=== PATIENT | male | born 1965 | race Caucasian/White ===

== ENCOUNTER → 2018-04-04 09:34 | Outpatient (CLI) | payer OTHER, SELFPAY ==
[2018-04-04 09:59] LABS: Red Blood Cells-Urine 0 SEEN /hpf (0-5); Squamous Epithelial Cells - UA 0 SEEN /hpf (0-5); White Blood Cells 0 SEEN /hpf (0-5)
[2018-04-04 10:53] LABS: Color, Urine Yellow (Yellow); Glucose, Dipstick Normal (Normal); Ketone-Dipstick Negative (Negative); Leukocyte Esterase-Dipstick Negative /ul (Negative); Nitrite-Dipstick Negative (Negative); Occult Blood-Urine Negative /ul (Negative); Protein-Dipstick Negative (Negative); Urine Bilirubin Dipstick Negative (Negative); Urine Clarity Clear (Clear); Urine Urobilinogen Normal (Normal)
[2018-04-04 11:09] LABS: Bacteria RARE /hpf (None Seen); Mucous, Urine 1+ /hpf (<or=2+)
[2018-04-04 11:37] LABS: Hemoglobin A1c 5.7 % (4.2-6.3)
[2018-04-04 11:42] LABS: AST(SGOT) 21 U/L (15-37); Alanine Aminotransfer ALT/SGPT 34 U/L (16-61); Albumin, Serum 3.7 g/dL (3.2-5.0); Alkaline Phosphatase 76 U/L (45-117); Anion Gap 6 (5-15); BUN 19 mg/dL (7-18); BUN/Creat Ratio 17.4 RATIO (10-20); Calcium,Total 8.2 mg/dL (8.5-10.1); Chloride 105 mmol/L (98-107); Cholesterol 201 mg/dL (200); Creatinine, Serum 1.09 mg/dL (0.70-1.30); EST Glomerular Filtration Rate 75 mL/min (>60); Est Glom Filt Rate - Afr Amer 90 mL/min (>60); Globulin 3.6 g/dL (2.2-4.2); Glucose 94 mg/dL (74-106); High Density Lipoprotein 51 mg/dL; Potassium 4.1 mmol/L (3.5-5.1); Protein, Total 7.3 g/dL (6.4-8.2); Sodium Level 141 mmol/L (136-145); Thyroid Stim Hormone (TSH) 1.79 uIU/mL (0.358-3.74); Triglycerides 78 mg/dL; Very Low Density Lipoprotein 16 mg/dL (5-40)
== END ==
PROVIDERS: Family Provider Internal Medicine; PCP Internal Medicine; Visit Provider Nurse Practitioner
DX: E78.2 Mixed hyperlipidemia (principal); R03.0 Elevated blood-pressure reading, without diagnosis of hypertension
CPT/HCPCS: 36415; 80053; 80061; 81001; 83036; 84443

== ENCOUNTER 2018-06-07 09:04 | Day surgery (SDC) | payer OTHER, SELFPAY ==
[2018-06-07 09:23] VITALS: BP 155/89; PULSE 86; RESP 16; TEMP 36.5; O2SAT 96; BMI 34.8
--- NOTE | 2018-06-07 10:36 | HP.PCM_ITS ---
Problem List (1) Screening for intestinal cancer Status: Acute History of Present Illness Date of Admission: 06/07/18 Chief Complaint: Screening for intestinal cancer The patient is a 53 year old M who is never had a previous colonoscopy. There is no family history of colon cancer. There is a family history of extensive diverticular disease in his father.. He denies bright red blood per rectum or melena. He is otherwise enjoyed good health. Denies chest pain or shortness of breath. Has not had any change of weight. No change of bowel habits. Past Medical History Allergies minocycline Allergy (Verified 06/07/18 09:21) Rash Home Medications: Ambulatory Orders Medication Instructions Recorded Aspirin E.C. [Ecotrin] 81 mg PO DAILY@0800 06/06/18 Carvedilol [Coreg] 6.25 mg PO BID 06/06/18 Glucosamine HCl 1,500 mg PO DAILY 06/06/18 Multivitamin [Daily Multiple 1 each PO DAILY 06/06/18 Vitamin] [place]-3 Fatty Acids [Fish Oil] 500 mg PO DAILY 06/06/18 Red Yeast Rice 600 mg PO DAILY 06/06/18 Smoking Status: Never smoker Review of Systems Constitutional: Denies: Anorexia Eyes: Denies: Blurred vision HEENT: Denies: Difficulty Hearing Cardiovascular: Denies: Chest Pain Respiratory: Denies: Cough Gastrointestinal: Denies: Abdominal Pain Psychiatric: Reports: Anxiety Endocrine: Denies: Change in Body Habitus VTE Information - Inpt Only VTE Present on Admission: No Patient Problems: Active and Suspected Problems Screening for intestinal cancer (Acute) - Physical Exam General: Alert, Oriented x3, Cooperative, No apparent distress HEENT: Atraumatic Oral: Moist Mucosa Neck: Supple Lungs: Clear to auscultation Cardiovascular: Regular rate Abdomen: Bowel Sounds Present, Soft, Non Tender Extremities: No edema, No Calf Tenderness Skin: No rashes Musculoskeletal: No Tenderness to Palpation of Joints or Extremities Neurological: Cranial nerves II-XII grossly intact Psych/Mental Status: Normal Affect Vital Signs Temp Pulse Resp BP Pulse Ox 97.7 F L 86 16 155/89 H 96 06/07/18 09:23 06/07/18 09:23 06/07/18 09:23 06/07/18 09:23 06/07/18 09:23 Oxygen Delivery Method Room Air Weight: 256 lb 9.889 oz Body Mass Index (BMI) 34.8 Assessment/Plan All Active Problems Screening for intestinal cancer (Acute) I plan to proceed with a screening colonoscopy with possible biopsy or polypectomy is indicated. He is aware of the technique, benefits, risks and alternatives. He has had an opportunity to ask and have questions answered. We will proceed as noted. Primary care physician Dr. Abena Nichols M.D., F.A.C.S.
[2018-06-07 11:35] VITALS: BP 116/81; BP 155/89; PULSE 87; RESP 17; TEMP 36.2; O2SAT 92
--- NOTE | 2018-06-07 11:35 | PCM.OPRPT ---
Problem List (1) Screening for intestinal cancer Status: Acute Report of Operation Date of Procedure: 06/07/18 Pre-Operative Diagnosis: Screening for intestinal cancer Post-Operative Diagnosis: Pancolonic diverticulosis. Internal hemorrhoids Surgery/Procedure Performed:: Colonoscopy Description of Surgical Findings:: Timeout informed consent was obtained. 53-year-old gent was taken to the endoscopy suite and placed into a left lateral decubitus position. He underwent monitored anesthesia care. Digital rectal exam performed. Grade 2 hemorrhoids. 2+ smooth prostate. No mass lesions. Flexible adult colonoscope inserted the rectum advanced quite readily through the sigmoid colon. Tension dionisio was activated was advanced to the transverse colon then by placing the patient supine and then some transabdominal pressure the scope was advanced to the cecum. The cecum ileocecal valve area was nicely achieved. Bowel prep was good. I carefully withdrew the scope from the cecum ascending colon transverse colon descending colon and sigmoid colon. Were needed I aspirated liquid stool. There was pancolonic diverticulosis with concentrated diverticulosis particularly of the sigmoid colon. I did not see any polyps or mass lesions. The scope was withdrawn to the rectum retroflex anorectal verge inspected grade 2 internal hemorrhoids noted but not bleeding. Excess fluid and air was aspirated free the procedure was completed with patient tolerating it well. Impression Pancolonic diverticulosis Grade 2 internal hemorrhoids This is the patient's first colonoscopy. Next screening colonoscopy recommended in 10 years. Scope was inserted at 1120. The cecum was reached at 1123. The procedure was completed at 1130. Cc: Dr. Abena Nichols M.D., F.A.C.S. Type of Anesthesia:: MAC Anesthesiologist: Estela Fox
[2018-06-07 11:40] VITALS: BP 119/75; BP 155/89; PULSE 93; RESP 16; O2SAT 95
[2018-06-07 11:45] VITALS: BP 118/88; BP 155/89; PULSE 90; RESP 16; O2SAT 95
[2018-06-07 11:50] VITALS: BP 134/93; BP 155/89; PULSE 85; RESP 16; TEMP 36.9; O2SAT 96
[2018-06-07 12:08] VITALS: BP 155/89
== END 2018-06-07 12:12 | disposition home or self-care (01) ==
LOC: EN 09:04 → AC 09:05
PROVIDERS: Family Provider Internal Medicine; PCP Internal Medicine; Visit Provider Surgery
PROC: 0DJD8ZZ Inspection of Lower Intestinal Tract, Via Natural or Artificial Opening Endoscopic (ICD-10-PCS; CPT 45378; principal; 2018-06-07 10:10)
DX: Z12.11 Encounter for screening for malignant neoplasm of colon (principal); K57.30 Diverticulosis of large intestine without perforation or abscess without bleeding; K64.8 Other hemorrhoids; I10 Essential (primary) hypertension; Z79.82 Long term (current) use of aspirin; Z79.899 Other long term (current) drug therapy
CPT/HCPCS: 45378; J7120

== ENCOUNTER → 2019-08-11 06:15 | Outpatient (CLI) | payer OTHER, SELFPAY ==
[2019-08-11 07:10] LABS: Hemoglobin 16.1 g/dL (13.0-16.5); Mean Corp Hgb Conc 32.2 g/dL (32-36); Mean Corpuscular Hgb 29.5 pg (27.0-32.0); Mean Corpuscular Volume 91.7 fL (80-94); Mean Platelet Vol. 9.6 fl (6.2-12.0); Platelet Count 270 K/mm3 (150-450); RBC Distribution Width CV 11.9 % (11.6-14.6); RBC Distribution Width SD 39.7 fl (35.1-43.9); Red Blood Count 5.45 M/mm3 (4.6-6.2); White Blood Count 10.1 K/mm3 (4.4-11.0)
[2019-08-11 07:50] LABS: AST(SGOT) 17 U/L (15-37); Alanine Aminotransfer ALT/SGPT 26 U/L (16-61); Albumin, Serum 3.6 g/dL (3.2-5.0); Alkaline Phosphatase 74 U/L (45-117); Anion Gap 3 (5-15); BUN 18 mg/dL (7-18); BUN/Creat Ratio 15.9 RATIO (10-20); Calcium,Total 8.1 mg/dL (8.5-10.1); Chloride 107 mmol/L (98-107); Cholesterol 207 mg/dL (200); Creatinine, Serum 1.13 mg/dL (0.70-1.30); EST Glomerular Filtration Rate 71 mL/min (>60); Est Glom Filt Rate - Afr Amer 86 mL/min (>60); Globulin 3.6 g/dL (2.2-4.2); Glucose 102 mg/dL (74-106); High Density Lipoprotein 51 mg/dL; Potassium 4.2 mmol/L (3.5-5.1); Protein, Total 7.2 g/dL (6.4-8.2); Sodium Level 140 mmol/L (136-145); Triglycerides 99 mg/dL; Very Low Density Lipoprotein 20 mg/dL (5-40)
== END ==
PROVIDERS: Family Provider Internal Medicine; PCP Internal Medicine; Referring Provider Internal Medicine; Visit Provider Internal Medicine
DX: Z00.00 Encounter for general adult medical examination without abnormal findings (principal); I10 Essential (primary) hypertension; Z79.899 Other long term (current) drug therapy
CPT/HCPCS: 36415; 80053; 80061; 85027

== ENCOUNTER → 2019-10-10 09:02 | Outpatient (CLI) | payer OTHER, SELFPAY ==
[2019-10-10 11:10] LABS: Vitamin D,25 Hydroxy 21.7 ng/mL (29.95-100.01)
== END ==
PROVIDERS: Family Provider Internal Medicine; PCP Internal Medicine; Referring Provider Internal Medicine; Visit Provider Internal Medicine
DX: E83.51 Hypocalcemia (principal)
CPT/HCPCS: 36415; 82306

== ENCOUNTER → 2020-11-16 14:55 | Outpatient (CLI) | payer OTHER, SELFPAY ==
--- NOTE | 2020-11-16 15:00 | RAD_ITS ---
STUDY: X-RAY CHEST REASON FOR EXAM: Male, 55 years old. Fall yesterday in driveway, left sided chest/rib pain TECHNIQUE: PA and lateral views of the chest. COMPARISON: None. FINDINGS: Hyperinflation. Minimal increased linear markings at the right lung base suggests a mild degree of the linear scarring. There is no demonstrated pleural abnormality. Normal size heart. Normal mediastinum and brittany. Normal visualized pulmonary arteries. Normal visualized aortic arch and descending thoracic aorta. There are degenerative changes of the visualized thoracic spine. Normal visualized ribs, clavicles, and shoulders. There is no demonstrated abnormality of the visualized soft tissue structures of the upper abdomen. RAD/Chest PA and Lateral IMPRESSION: Minimal increased markings at the right lung base suggestive of linear scarring. Electronically Signed: Kiel Posey MD at 15:21 EST , Service support ,
== END ==
PROVIDERS: PCP Internal Medicine; Referring Provider Clinical Nurse Specialist; Visit Provider Clinical Nurse Specialist
DX: R07.81 Pleurodynia (principal); W19.XXXA Unspecified fall, initial encounter
CPT/HCPCS: 71046

== ENCOUNTER 2021-12-14 10:35 | Outpatient (CLI) | payer OTHER, SELFPAY ==
[2021-12-14 10:53] LABS: Hematocrit 45.9 % (40-54); Hemoglobin 15.1 g/dL (13.0-16.5); Mean Corp Hgb Conc 32.9 g/dL (32-36); Mean Corpuscular Hgb 29.6 pg (27.0-32.0); Platelet Count 284 K/mm3 (150-450); RBC Distribution Width CV 11.8 % (11.6-14.6); RBC Distribution Width SD 38.8 fl (35.1-43.9); White Blood Count 12.9 K/mm3 (4.4-11.0)
[2021-12-14 11:20] LABS: Vitamin D,25 Hydroxy 20.5 ng/mL
[2021-12-14 11:26] LABS: ALB/GLOB Ratio 0.8 RATIO (0.9-2.4); AST(SGOT) 20 U/L (15-37); Alanine Aminotransfer ALT/SGPT 28 U/L (16-61); Albumin, Serum 3.4 g/dL (3.2-5.0); Alkaline Phosphatase 83 U/L (45-117); Anion Gap 4 (5-15); BUN 23 mg/dL (7-18); BUN/Creat Ratio 21.3 RATIO (10-20); Calcium,Total 8.7 mg/dL (8.5-10.1); Chloride 105 mmol/L (98-107); Cholesterol 163 mg/dL (200); Creatinine, Serum 1.08 mg/dL (0.70-1.30); EST Glomerular Filtration Rate 75 mL/min (>60); Est Glom Filt Rate - Afr Amer 90 mL/min (>60); Globulin 4.1 g/dL (2.2-4.2); Glucose 96 mg/dL (74-106); High Density Lipoprotein 46 mg/dL; PSA,Total - Annual Screen 3.49 ng/mL (0.00-4.00); Potassium 4.3 mmol/L (3.5-5.1); Protein, Total 7.5 g/dL (6.4-8.2); Sodium Level 139 mmol/L (136-145); Triglycerides 78 mg/dL; Very Low Density Lipoprotein 16 mg/dL (5-40)
== END 2021-12-14 23:59 | disposition home or self-care (01) ==
LOC: LAB 10:37
PROVIDERS: PCP Internal Medicine; Referring Provider Internal Medicine; Visit Provider Internal Medicine
DX: I10 Essential (primary) hypertension (principal); Z79.899 Other long term (current) drug therapy; E55.9 Vitamin D deficiency, unspecified; E78.00 Pure hypercholesterolemia, unspecified; Z12.5 Encounter for screening for malignant neoplasm of prostate
CPT/HCPCS: 36415; 80053; 80061; 82306; 84153; 85027; G0103

== ENCOUNTER → 2023-01-30 | Outpatient (CLI) | payer OTHER, SELFPAY ==
[2023-01-30 09:55] LABS: Hematocrit 50.2 % (40-54); Hemoglobin 16.2 g/dL (13.0-16.5); Mean Corp Hgb Conc 32.3 g/dL (32-36); Mean Corpuscular Hgb 29.3 pg (27.0-32.0); Mean Corpuscular Volume 90.8 fL (80-94); Mean Platelet Vol. 9.5 fl (6.2-12.0); Platelet Count 279 K/mm3 (150-450); RBC Distribution Width CV 11.8 % (11.6-14.6); RBC Distribution Width SD 39.4 fl (35.1-43.9); Red Blood Count 5.53 M/mm3 (4.6-6.2); White Blood Count 9.7 K/mm3 (4.4-11.0)
[2023-01-30 10:18] LABS: Vitamin D,25 Hydroxy 27.8 ng/mL
[2023-01-30 10:19] LABS: ALB/GLOB Ratio 1.1 RATIO (0.9-2.4); AST(SGOT) 25 U/L (15-37); Alanine Aminotransfer ALT/SGPT 33 U/L (16-61); Albumin, Serum 3.7 g/dL (3.2-5.0); Alkaline Phosphatase 80 U/L (45-117); Anion Gap 3 (5-15); BUN 26 mg/dL (7-18); BUN/Creat Ratio 23.6 RATIO (10-20); Calcium,Total 8.5 mg/dL (8.5-10.1); Chloride 108 mmol/L (98-107); Cholesterol 218 mg/dL (200); EST Glomerular Filtration Rate 73 mL/min (>60); Est Glom Filt Rate - Afr Amer 88 mL/min (>60); Globulin 3.4 g/dL (2.2-4.2); Glucose 109 mg/dL (74-106); High Density Lipoprotein 60 mg/dL; PSA,Total - Annual Screen 2.47 ng/mL (0.00-4.00); Potassium 4.1 mmol/L (3.5-5.1); Protein, Total 7.1 g/dL (6.4-8.2); Sodium Level 138 mmol/L (136-145); Triglycerides 83 mg/dL; Very Low Density Lipoprotein 17 mg/dL (5-40)
== END | disposition home or self-care (01) ==
LOC: LAB 09:19
PROVIDERS: PCP Internal Medicine; Referring Provider Internal Medicine; Visit Provider Internal Medicine
DX: Z00.00 Encounter for general adult medical examination without abnormal findings (principal); I10 Essential (primary) hypertension; E55.9 Vitamin D deficiency, unspecified; Z12.5 Encounter for screening for malignant neoplasm of prostate
CPT/HCPCS: 36415; 80053; 80061; 82306; 84153; 85027; G0103

== ENCOUNTER 2024-04-11 18:02 | Inpatient (IN) | payer OTHER, SELFPAY ==
[2024-04-11 18:02] VITALS: BP 145/76; PULSE 120; RESP 18; TEMP 36.1; O2SAT 96; BMI 33.0
--- NOTE | 2024-04-11 19:00 | CT_ITS ---
STUDY: CT ABDOMEN AND PELVIS WITH CONTRAST REASON FOR EXAM: Male, 58 years old. lower abdominal pain RADIATION DOSAGE (If Supplied By Facility): CTDIvol = ( 16.46 ) mGy, DLP = ( 1291.98 ) mGycm TECHNIQUE: Transaxial images were obtained from the dome of the diaphragm to the symphysis pubis without oral contrast. IV 100mL Isovue-370 was administered. Sagittal and coronal images were reconstructed. Individualized dose optimization techniques were used for this CT. COMPARISON: None. FINDINGS: Minor atelectasis within the dependent portion of the lower lobes. The visualized portions of the heart are within normal limits. Small hiatal hernia is noted. Normal liver. There are multiple gallstones noted without evidence for pericholecystic edema.. Normal spleen. Normal pancreas. Normal bilateral adrenal glands. Normal right kidney. Multiple small parapelvic cysts in left kidney. No evidence for obstruction or ureteral calculus. Normal visualized stomach. Normal small intestine. Diverticular changes of the colon. There is concentric thickening of the khoury at the junction of the distal descending and proximal sigmoid colon with stranding of fat consistent with acute diverticulitis. There is no peridiverticular abscess. No evidence for acute appendicitis. Normal abdominal aorta. Normal inferior vena cava. Normal retroperitoneum. Normal urinary bladder. Nonspecific enlargement of the prostate. Normal abdominal wall. Lumbar spine demonstrates degenerative changes CT/Abdomen/Pelvis W IV Cont ONLY IMPRESSION: Diffuse diverticular disease of the colon and acute diverticulitis at the junction of the distal descending and sigmoid colon without evidence for peridiverticular abscess. Other findings as above Electronically Signed: Zak Arango MD at 20:11 EDT Reading Location ID and State: [facility] / [place] Tel , Service support ,
[2024-04-11] MEDS: 0.9% Normal Saline (1000mL) 1,000 ML 999 ML IV (19:05)
[2024-04-11] MEDS: Morphine 4 MG/ML Syringe IV (19:05)
[2024-04-11] MEDS: Ondansetron 4 MG/2 ML Vial IV (19:05)
[2024-04-11 19:10] LABS: Absolute Lymphocyte Count 2.23 X10^3/uL (0.83-4.51); Absolute Neutrophil Count 19.1 X10^3/uL (2.0-7.7); Basophil# 0.05 X10^3/uL; Basophil% 0.2 % (0-1); Eosinophil# 0.03 X10^3/uL; Eosinophils% 0.1 % (0-5); Hematocrit 44.9 % (40-54); Hemoglobin 14.7 g/dL (13.0-16.5); Lymphocyte # 2.23 X10^3/ul (0.83-4.51); Lymphocyte % 9.5 % (19-41); Mean Corp Hgb Conc 32.7 g/dL (32-36); Mean Corpuscular Hgb 29.5 pg (27.0-32.0); Mean Corpuscular Volume 90.2 fL (80-94); Mean Platelet Vol. 8.9 fl (6.2-12.0); Monocyte# 1.95 X10^3/uL; Monocyte% 8.3 % (0-10); NRBC Flagged by Analyzer 0 % (0-5); Neutrophil # 19.07 X10^3/uL (2.7-7.7); Neutrophil % 81.4 % (47-70); POSITIVE DIFFERENTIAL YES; Platelet Count 409 K/mm3 (150-450); RBC Distribution Width CV 11.9 % (11.6-14.6); RBC Distribution Width SD 39.3 fl (35.1-43.9); Red Blood Count 4.98 M/mm3 (4.6-6.2); White Blood Count 23.4 K/mm3 (4.4-11.0)
[2024-04-11 19:17] LABS: Differential Indicated SCAN CRITERIA MET
--- NOTE | 2024-04-11 19:25 | EX.ED.DYSGE1 ---
HPI <AGNIESZKA Acharya - Last Filed: 04/11/24 20:37> History of Present Illness Chief Complaint: Abd Pain Narrative Narrative: Patient is a 58-year-old male with history of hypertension who presents to the emergency department for 8 days of worsening abdominal pain, fever and chills, elevated white blood cell count. Patient states that he developed lower abdominal pain, into his hips. Patient states has been having diarrhea. The pain is constant however now that it gets more sharp. Per the , the patient is unable to get comfortable. Patient had laboratory values completed in secondary to having an elevated white blood cell count of 22,000, the doctor referred him to the emergency department. PFSH <AGNIESZKA Acharya - Last Filed: 04/11/24 20:37> [facility] Medical History CKD (chronic kidney disease), stage II HLD (hyperlipidemia) Obesity Hypertension Home Medications ?Medication ?Instructions ?Recorded ?Last Taken ?Type aspirin 81 mg tablet,delayed 81 mg PO DAILY@0800 06/06/18 Unknown History release carvedilol 6.25 mg tablet (Coreg) 6.25 mg PO BID 06/06/18 06/07/18 History glucosamine HCl 1,500 mg tablet 1,500 mg PO DAILY 06/06/18 Unknown History multivitamin (Daily Multiple 1 ea PO DAILY 06/06/18 Unknown History tablet) omega 3-dha 60 mg-epa 90 mg-fish 500 mg PO DAILY 06/06/18 Unknown History oil 500 mg capsule, delayed release (Fish Oil) red yeast rice 600 mg capsule 600 mg PO DAILY 06/06/18 Unknown History Allergy/AdvReac Type Severity Reaction Status Date / Time minocycline Allergy Rash Verified 04/11/24 18:04 Family History Mother Diabetes Dementia Father Diabetes CAD (coronary artery disease) Heart disease Hypertension Myocardial infarction Surgical History History of dental surgery History of vasectomy Social History household members: spouse Smoking Status: Never smoker alcohol intake: never substance use type: does not use ROS <AGNIESZKA Acharya - Last Filed: 04/11/24 20:37> ROS ED ROS Narrative Constitutional: Negative for weight loss, weakness. Positive fever and chills Eyes: Negative for vision loss, vision change, double vision ENT: Negative for any sore throat, ear pain, congestion Cardiovascular: Negative for any chest pain, tightness, palpitations Respiratory: Negative for any cough, sputum production, hemoptysis, dyspnea, dyspnea on exertion, orthopnea Gastrointestinal: Negative for any nausea, vomiting, constipation, blood in stool, blood in vomit. Positive for abdominal pain, diarrhea : Negative for any urinary frequency, dysuria, retention, blood in urine Muscle skeletal: Negative for any neck pain, back pain Neurological: Negative for any headache, syncope, dizziness Skin: Negative for any rashes, itching, abrasions, lacerations Psychiatric: Negative for any depression, anxiety, stress, suicidal ideation, homicidal ideation Hematologic: Negative for any excessive bruising, easy bleeding EXAM <Adrian Fam NP-C - Last Filed: 04/11/24 20:37> Physical Exam Narrative Exam Narrative: Vital signs reviewed. Patient had temperature of 100.8, appeared to be in no distress. Patient did appear flushed HEET: Head normocephalic atraumatic, TMs clear bilaterally. Posterior pharynx is clear, dry mucous membranes. Nares clear bilaterally. Neck: Supple with no lymphadenopathy or tenderness. No signs of meningismus. Cardiac: Regular rate and rhythm no murmurs gallops or rubs, equal peripheral pulses bilaterally. Respiratory: Lungs clear to auscultation bilaterally. No chest tenderness. Abdomen: Soft, nontender, nondistended. No abdominal bruit or pulsatile masses. No hepatosplenomegaly. Active bowel sounds in all quadrants. Extremities: No peripheral edema, no signs of gross trauma or deformity. Active full range of motion of all extremities. Neuro: Cranial nerves II through XII intact, no focal neurological deficits. Skin: Clean dry and intact with no rash, purpura, petechiae, vesicles or pustules. Backs/flank: No CVA tenderness, no midline spinal tenderness, no deformity. Psych: Normal mood and affect. No SI, HI or acute psychosis. Const Vital Signs: 04/11/24 18:02 04/11/24 20:02 Temperature 96.9 F L 98 F Temperature Source Temporal Oral Pulse Rate 120 H 105 H Respiratory Rate 18 16 Blood Pressure 145/76 H 130/70 H Blood Pressure Mean 99 90 Pulse Ox 96 98 Oxygen Delivery Method Room Air Room Air <Dr. Prabhu Back MD - Last Filed: 04/11/24 22:17> Physical Exam Const Vital Signs: 04/11/24 18:02 04/11/24 20:02 Temperature 96.9 F L 98 F Temperature Source Temporal Oral Pulse Rate 120 H 105 H Respiratory Rate 18 16 Blood Pressure 145/76 H 130/70 H Blood Pressure Mean 99 90 Pulse Ox 96 98 Oxygen Delivery Method Room Air Room Air MDM <AGNIESZKA Acharya - Last Filed: 04/11/24 20:37> MDM Lab Data Labs: Laboratory Results - last 24 hr 04/11/24 04/11/24 04/11/24 18:38 19:15 19:45 WBC 23.4 H RBC 4.98 Hgb 14.7 Hct 44.9 MCV 90.2 MCH 29.5 MCHC 32.7 RDW Std Deviation 39.3 RDW Coeff of Hung 11.9 Plt Count 409 MPV 8.9 Immature Gran % (Auto) 0.500 Neut % (Auto) 81.4 H Lymph % (Auto) 9.5 L [place] % (Auto) 8.3 Eos % (Auto) 0.1 Baso % (Auto) 0.2 Absolute Neuts (auto) 19.1 H Absolute Lymphs (auto) 2.23 Nucleated RBC % 0 Differential Comment SEE COMMENT Diff Path Review May foll Toxic Granulation RARE Platelet Estimate SLT INC RBC Morphology N CHROM Anisocytosis RARE Macrocytosis RARE Ovalocytes RARE Sodium 135 L Potassium 4.0 Chloride 101 Carbon Dioxide 26.0 Anion Gap 8 BUN 21 H Creatinine 1.36 H Estim Creat Clear Calc 74.15 Est GFR (MDRD) Af Amer 69 Est GFR (MDRD) Non-Af 57 L BUN/Creatinine Ratio 15.4 Glucose 114 H Lactic Acid 0.9 Calcium 8.9 Total Bilirubin 0.90 AST 15 ALT 46 Alkaline Phosphatase 88 Total Protein 7.6 Albumin 3.0 L Globulin 4.6 H Albumin/Globulin Ratio 0.7 L Lipase 16 Urine Color Yellow Urine Clarity Clear Urine pH 6.0 Ur Specific [place] 1.010 Urine Protein 15 H Urine Glucose (UA) Normal Urine Ketones 50 H Urine Occult Blood 25 H Urine Nitrite Negative Urine Bilirubin Negative Urine Urobilinogen Normal Ur Leukocyte Esterase Negative Urine RBC 0-5 SEEN Urine WBC 0-5 SEEN Ur Squamous Epith Cells 0-5 SEEN Urine Bacteria 1+ Urine Mucus 1+ Radiography Diagnostic Testing: Clinical Impression(s) from Imaging Studies Abdomen/Pelvis CT 04/11/24 19:00 IMPRESSION: Diffuse diverticular disease of the colon and acute diverticulitis at the junction of the distal descending and sigmoid colon without evidence for peridiverticular abscess. Other findings as above Electronically Signed: Zak Arango MD at 20:11 EDT Reading Location ID and State: [facility] / [place] Tel , Service support , Treatment and Re-Evaluation :: Differential diagnosis includes however is not limited to: Acute appendicitis, colitis, diverticulitis, obstructing uropathy, infected kidney stone Patient appears to be in no obvious respiratory distress, vital signs show slight tachycardia, patient is febrile at 100.8 orally. Patient presents to the emerged department for elevated white blood cell count, abdominal pain for 8 days. Patient will receive a full abdominal workup including repeat CBC, CMP, lipase as well as lactic acid, CT scan of the abdomen pelvis with IV contrast will be obtained. Patient will receive IV fluids, morphine, Zofran. Patient will be reevaluated. All radiologic examinations were read, reviewed by the emergency department attending. From these reads, a plan of care will be put in place. Patient's CBC is a leukocytosis with white blood count of 23.4. Patient's chemistries showed a creatinine of 1.36 is slightly elevated. Lactic acid was 0.9 which is negative. Patient did not have enough relief with IV morphine, Dilaudid and Toradol will be ordered. CT scan of the abdomen pelvis shows diffuse diverticular disease of the colon acute diverticulitis at the junction of the distal descending and sigmoid colon without evidence of MAYLIN diverticular abscess. Other findings as above. Secondary to this finding, leukocytosis, the patient was placed on Zosyn, redosed with pain medicine. Patient be admitted to the hospital. <Dr. Prabhu Back MD - Last Filed: 04/11/24 22:17> [facility] Narrative Medical decision making narrative: I have personally performed a face to face assessment of the patient and have reviewed the ARON Note. I performed a substantive portion of the visit including all aspects of the following. My read findings include: History is remarkable for past history of mild diverticulosis based on colonoscopy formed by Dr. Fan Nichols 5 years ago. He presents with worsening abdominal pain persistent fever nausea. He denies history of diverticulitis. He denies urologic symptoms. He is on no antibiotics presently. Exam is blood pressure 145 or 76 pulse of 120. Patient's abdomen is firm with percussion tenderness left lower quadrant. There is guarding right lower quadrant and left lower quadrant. Patient has rebound tenderness left lower quadrant. There is no CVA tenderness noted. There is no saeid lymphadenopathy. Medical Decision Making differential diagnosis is perforated viscus versus diverticulosis versus diverticulitis versus atypical presentation for appendicitis. CT reveals acute diverticulitis. In light of the white count, fever peritoneal findings IV antibiotics were started and hospitalist was contacted. Dr. Wilkerson is excepted patient. Admit to [facility]. Other additions or changes: [None] Lab Data Attestation: I reviewed the patient's lab results. Lab results narrative: White count is 23.4 thousand with shift. Electrolyte panel is unremarkable. Renal function is normal. Lactate is normal. UA is remarkable for bacteriuria. This is asymptomatic bacteriuria or may be due to the fact that he has significant diverticulitis. Labs: Laboratory Results - last 24 hr 04/11/24 04/11/24 04/11/24 18:38 19:15 19:45 WBC 23.4 H RBC 4.98 Hgb 14.7 Hct 44.9 MCV 90.2 MCH 29.5 MCHC 32.7 RDW Std Deviation 39.3 RDW Coeff of Hung 11.9 Plt Count 409 MPV 8.9 Immature Gran % (Auto) 0.500 Neut % (Auto) 81.4 H Lymph % (Auto) 9.5 L [place] % (Auto) 8.3 Eos % (Auto) 0.1 Baso % (Auto) 0.2 Absolute Neuts (auto) 19.1 H Absolute Lymphs (auto) 2.23 Nucleated RBC % 0 Differential Comment SEE COMMENT Diff Path Review May foll Toxic Granulation RARE Platelet Estimate SLT INC RBC Morphology N CHROM Anisocytosis RARE Macrocytosis RARE Ovalocytes RARE Sodium 135 L Potassium 4.0 Chloride 101 Carbon Dioxide 26.0 Anion Gap 8 BUN 21 H Creatinine 1.36 H Estim Creat Clear Calc 74.15 Est GFR (MDRD) Af Amer 69 Est GFR (MDRD) Non-Af 57 L BUN/Creatinine Ratio 15.4 Glucose 114 H Lactic Acid 0.9 Calcium 8.9 Total Bilirubin 0.90 AST 15 ALT 46 Alkaline Phosphatase 88 Total Protein 7.6 Albumin 3.0 L Globulin 4.6 H Albumin/Globulin Ratio 0.7 L Lipase 16 Urine Color Yellow Urine Clarity Clear Urine pH 6.0 Ur Specific [place] 1.010 Urine Protein 15 H Urine Glucose (UA) Normal Urine Ketones 50 H Urine Occult Blood 25 H Urine Nitrite Negative Urine Bilirubin Negative Urine Urobilinogen Normal Ur Leukocyte Esterase Negative Urine RBC 0-5 SEEN Urine WBC 0-5 SEEN Ur Squamous Epith Cells 0-5 SEEN Urine Bacteria 1+ Urine Mucus 1+ Radiography Diagnostic Testing: Clinical Impression(s) from Imaging Studies Abdomen/Pelvis CT 04/11/24 19:00 IMPRESSION: Diffuse diverticular disease of the colon and acute diverticulitis at the junction of the distal descending and sigmoid colon without evidence for peridiverticular abscess. Other findings as above Electronically Signed: Zak Arango MD at 20:11 EDT , Discharge Plan Dx/Rx/DC Orders Clinical Impression: Diverticulitis large intestine, Localized peritonitis, Leukocytosis, Fever, Sinus tachycardia Disposition [facility] Dis[facility] Date/Time: 04/11/24 21:18
[2024-04-11 19:31] LABS: ALB/GLOB Ratio 0.7 RATIO (0.9-2.4); AST(SGOT) 15 U/L (15-37); Alanine Aminotransfer ALT/SGPT 46 U/L (16-61); Alkaline Phosphatase 88 U/L (45-117); Anion Gap 8 (5-15); BUN 21 mg/dL (7-18); BUN/Creat Ratio 15.4 RATIO (10-20); Calcium,Total 8.9 mg/dL (8.5-10.1); Chloride 101 mmol/L (98-107); Creatinine, Serum 1.36 mg/dL (0.70-1.30); EST Glomerular Filtration Rate 57 mL/min (>60); Est Glom Filt Rate - Afr Amer 69 mL/min (>60); Estimated Creatinine Clearance 74.15 ml/min; Globulin 4.6 g/dL (2.2-4.2); Glucose 114 mg/dL (74-106); Lipase 16 U/L (13-75); Protein, Total 7.6 g/dL (6.4-8.2); Sodium Level 135 mmol/L (136-145)
[2024-04-11 19:32] LABS: Anisocytosis RARE; Macrocytosis RARE; Ovalocyte RARE; Platelet Estimate SLT INC (ADEQ); Red Cell Morphology N CHROM NORMAL (NORM C&C); Toxic Granulation RARE
[2024-04-11 19:51] LABS: Lactic Acid 0.9 mmol/L (0.4-1.9)
[2024-04-11 19:57] LABS: Color, Urine Yellow (Yellow); Glucose, Dipstick Normal (Normal); Ketone-Dipstick 50 mg/dl (Negative); Leukocyte Esterase-Dipstick Negative /ul (Negative); Nitrite-Dipstick Negative (Negative); Occult Blood-Urine 25 /ul (Negative); Protein-Dipstick 15 mg/dl (Negative); Urine Bilirubin Dipstick Negative (Negative); Urine Clarity Clear (Clear); Urine Urobilinogen Normal (Normal)
[2024-04-11 20:02] VITALS: BP 130/70; PULSE 105; RESP 16; TEMP 36.6; O2SAT 98
[2024-04-11 20:12] LABS: Bacteria 1+ /hpf (None Seen); Mucous, Urine 1+ /hpf (<or=2+); Red Blood Cells-Urine 0-5 SEEN /hpf (0-5); White Blood Cells 0-5 SEEN /hpf (0-5)
[2024-04-11 20:13] LABS: Squamous Epithelial Cells - UA 0-5 SEEN /hpf (0-5)
--- NOTE | 2024-04-11 20:28 | PCM.HP.STD ---
HPI - General General Date of Admission: 04/11/24 Date of Service: 04/11/24 Chief Complaint: Abdominal pain, diarrhea. HPI Narrative The patient is a 58 y/o M w/ PMHx: HTN, HLD, Obesity who presents to the [facility] ED on 04/11/24 with history of 8 days of progressively worsening abdominal discomfort as well as fever and chills with lower bilateral quadrant abdominal discomfort with diarrhea which has become constant with intermittent sharp stabbing with outpatient evaluation and noted elevated WBC of 22,000 with referral to ED for further evaluation given concerns. He notes that he has been having at least 2-3 liquidy stools a day and has had lack of appetite. He has not had any nausea or emesis. He does state that he has been taking Pepto-Bismol for stomach discomfort which has made his stool dark in appearance. He notes that he did see his doctor on day of presentation and had a's CAT scan ordered as well as labs but unfortunately the CAT scan was going to be delayed until the following Sunday and when his labs returned abnormal he was referred to the ED to be evaluated more quickly. He currently rates his discomfort 7 out of 10 in severity but when he attempts to move it becomes 10 out of 10. He has a constant dull aching pain that he describes as a constant shock which worsens when he is active or attempts to be. Workup in the ED included T96.9 Temporally, heart rate 120, BP 145/76, respiratory rate 18, 96% on room air, CBC with WC 23.4, human 14.7, platelet 409 with left shift, CMP with sodium 135, BUN/creatinine 21/1.36, GFR 57, glucose 114, hepatic profile not marked appearing, lipase 16, lactic acid 0.9, urinalysis not marked appearing, CT abdomen and pelvis with diffuse diverticular disease of the colon and acute diverticulitis at the junction of the distal descending and sigmoid colon without any evidence for peridiverticular abscess. In the ED patient ministered 1 L normal saline, morphine 4 mg IV x 1, Toradol 50 mg IV x 1, Dilaudid 1 mg IV x 1, Zosyn 3.75 g IV x 1. [facility] Medical History (Updated 04/11/24 @ 20:[address] Carol Wilkerson MD) CKD (chronic kidney disease), stage II HLD (hyperlipidemia) Obesity Hypertension Home Medications ?Medication ?Instructions ?Recorded ?Last Taken ?Type aspirin 81 mg tablet,delayed 81 mg PO DAILY@0800 06/06/18 Unknown History release carvedilol 6.25 mg tablet (Coreg) 6.25 mg PO BID 06/06/18 06/07/18 History glucosamine HCl 1,500 mg tablet 1,500 mg PO DAILY 06/06/18 Unknown History multivitamin (Daily Multiple 1 ea PO DAILY 06/06/18 Unknown History tablet) omega 3-dha 60 mg-epa 90 mg-fish 500 mg PO DAILY 06/06/18 Unknown History oil 500 mg capsule, delayed release (Fish Oil) red yeast rice 600 mg capsule 600 mg PO DAILY 06/06/18 Unknown History Allergy/AdvReac Type Severity Reaction Status Date / Time minocycline Allergy Rash Verified 04/11/24 18:04 Family History (Updated 04/11/24 @ 20:[address] Carol Wilkerson MD) Mother Diabetes Dementia Father Diabetes CAD (coronary artery disease) Heart disease Hypertension Myocardial infarction Surgical History (Updated 04/11/24 @ 20:[address] Carol Wilkerson MD) History of dental surgery History of vasectomy Social History (Updated 04/11/24 @ 20:[address] Carlo Wilkerson MD) household members: spouse Smoking Status: Never smoker alcohol intake: never substance use type: does not use ROS ROS Narrative Admission Review of Systems: CONSTITUTIONAL: No weight loss, + fever, chills, weakness or fatigue. HEENT: Eyes: No visual loss, blurred vision, double vision or yellow sclerae. Ears, Nose, Throat: No hearing loss, sneezing, congestion, runny nose or sore throat. SKIN: No rash or itching, lesions, wounds. CARDIOVASCULAR: No chest pain, chest pressure or chest discomfort, palpitations, edema, orthopnea, syncopal events. RESPIRATORY: No shortness of breath, cough or sputum, wheezing, hemoptysis. GASTROINTESTINAL: + Anorexia, abdominal pain, diarrhea, darker stools but on Pepto-Bismol. No melena, BRBPR. GENITOURINARY: No dysuria, frequency, urgency or retention. NEUROLOGICAL: No headache, dizziness, syncope, paralysis, ataxia, numbness or tingling in the extremities, focal weakness, change in bowel or bladder control, seizure. MUSCULOSKELETAL: + muscle, back pain, joint pain or stiffness. HEMATOLOGIC: No anemia, bleeding or bruising. LYMPHATICS: No enlarged nodes. No history of splenectomy. PSYCHIATRIC: No history of depression or anxiety. ENDOCRINOLOGIC: No reports of sweating, cold or heat intolerance. No polyuria or polydipsia. ALLERGIES: No history of asthma, hives, eczema or rhinitis. Vital Signs Vital Signs Vital Signs: 04/11/24 18:02 Temperature 96.9 F L Temperature Source Temporal Pulse Rate 120 H Respiratory Rate 18 Blood Pressure 145/76 H Blood Pressure Mean 99 Pulse Ox 96 Oxygen Delivery Method Room Air Weight Weight: 243 lb 9.773 oz Body Mass Index (BMI) 33.0 Physical Exam Narrative Physical Examination: General: Awake, alert, oriented x 3 and cooperative, seated upright in the ED bed, fatigued, notes pain currently 7 out of 10 in severity. Skin: Normal color, normal turgor, no icterus, no cyanosis. HEENT: AT/NC, EOMI, PERRLA, dry MM, no carotid bruits or JVD noted. Lungs: CTA bilaterally, moderate effort, mild decrease BL bases, no rales, ronchi or wheezing. Heart: Mildly tachycardic with regular rhythm; no gallop, rub audible. Abdomen: Soft, obese, discomfort to palpation bilateral lower quadrant, left greater than right, some mild guarding but no rebound, nondistended, mildly hyperactive BS, no appreciated HSM. Extremities: No cyanosis, clubbing, or edema. Neurological: Patient awake, alert, oriented as noted, cognitive function intact; pupils equally reactive to light and accommodation, cranial nerves grossly normal, moving all 4 extremities, no focal deficits, strength mildly to moderately global decreased secondary to acute complaints. Psychiatric: Affect appears mildly uncomfortable, fatigued,no acute evidence of depressive or anxiety feelings. Results Lab / Micro Data 04/11/24 18:38 04/11/24 18:38 Labs: Laboratory Results - last 24 hr 04/11/24 18:38: WBC 23.4 H, RBC 4.98, Hgb 14.7, Hct 44.9, MCV 90.2, MCH 29.5, MCHC 32.7, RDW Std Deviation 39.3, RDW Coeff of Hung 11.9, Plt Count 409, MPV 8.9, Immature Gran % (Auto) 0.500, Neut % (Auto) 81.4 H, Lymph % (Auto) 9.5 L, Barber % (Auto) 8.3, Eos % (Auto) 0.1, Baso % (Auto) 0.2, Absolute Neuts (auto) 19.1 H, Absolute Lymphs (auto) 2.23, Nucleated RBC % 0, Differential Comment SEE COMMENT, Diff Path Review May foll, Toxic Granulation RARE, Platelet Estimate SLT INC, RBC Morphology N CHROM, Anisocytosis RARE, Macrocytosis RARE, Ovalocytes RARE, Sodium 135 L, Potassium 4.0, Chloride 101, Carbon Dioxide 26.0, Anion Gap 8, BUN 21 H, Creatinine 1.36 H, Estim Creat Clear Calc 74.15, Est GFR (MDRD) Af Amer 69, Est GFR (MDRD) Non-Af 57 L, BUN/Creatinine Ratio 15.4, Glucose 114 H, Calcium 8.9, Total Bilirubin 0.90, AST 15, ALT 46, Alkaline Phosphatase 88, Total Protein 7.6, Albumin 3.0 L, Globulin 4.6 H, Albumin/Globulin Ratio 0.7 L, Lipase 16 04/11/24 19:15: Lactic Acid 0.9 04/11/24 19:45: Urine Color Yellow, Urine Clarity Clear, Urine pH 6.0, Ur Specific [place] 1.010, Urine Protein 15 H, Urine Glucose (UA) Normal, Urine Ketones 50 H, Urine Occult Blood 25 H, Urine Nitrite Negative, Urine Bilirubin Negative, Urine Urobilinogen Normal, Ur Leukocyte Esterase Negative, Urine RBC 0-5 SEEN, Urine WBC 0-5 SEEN, Ur Squamous Epith Cells 0-5 SEEN, Urine Bacteria 1+, Urine Mucus 1+ Imaging Radiology Impression Abdomen/Pelvis CT 04/11/24 19:00 IMPRESSION: Diffuse diverticular disease of the colon and acute diverticulitis at the junction of the distal descending and sigmoid colon without evidence for peridiverticular abscess. Other findings as above Electronically Signed: Zak Arango MD at 20:11 EDT Reading Location ID and State: [facility] / [place] Tel , Service support , Assessment & Plan Assessment/Plan (1) Acute diverticulitis: PLAN: Plan The patient is a 58 y/o M w/ PMHx: HTN, HLD, Obesity, CKD stage II who presents to the [facility] ED on 04/11/24 with history of 8 days of progressively worsening abdominal discomfort as well as fever and chills with lower bilateral quadrant abdominal discomfort with diarrhea which has become constant with intermittent sharp stabbing with outpatient evaluation and noted elevated WBC of 22,000 with referral to ED for further evaluation given concerns. #1. Acute diverticulitis at the junction of the distal descending and sigmoid colon without any evidence of peridiverticular abscess with localized peritonitis with significant tachycardia, intractable pain, diarrhea and leukocytosis of 23.4 with significant left shift: Will admit to MS, maintain on aggressive hydration, monitor I&Os, maintain NPO status w/ bowel rest until pain improved with transition to clears and advance diet as tolerated as improving, IV PPI, anti-emetics, pain regimen PRN. #2. Acute renal insufficiency on CKD stage II based on GFR trending secondary to #1: Admission BUN/current 21/1.36, GFR 57, baseline creatinine primarily 1.0-1.1, will continue to hydrate and repeat BMP in a.m. #3. Hypertension: Continue home regimen including Coreg, PRN hydralazine. #4. Hyperlipidemia: We will temporarily hold patient red yeast rice home regimen, resume outpatient. #5. Obesity: Weight loss and lifestyle changes encouraged. #6. DVT prophylaxis: Given type of presentation low risk, encourage ambulation. #7. 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 She is in the healthcare industry. Discussed CODE status at length including difference between FULL code, DNR-CCA and DNR-CC status. Following discussions about the differences in these status, requested full code. Charges/Coding Visit Charges Inpatient E&M: 43660 Init Hosp L3
[2024-04-11] MEDS: Ketorolac 15 MG/ML Vial IV (20:51)
[2024-04-11] MEDS: Piperacil/Tazobactam 3.375 GM in 0.9% Normal Saline (50mL MB+) 50 ML IV (20:52)
[2024-04-11] MEDS: HYDROmorphone 1 MG/ML Syringe IV (20:52)
[2024-04-11 21:11] VITALS: BP 136/78; PULSE 111; RESP 16; TEMP 36.7; O2SAT 98
[2024-04-11 21:46] VITALS: BP 119/69; PULSE 105; RESP 16; TEMP 36.8; O2SAT 98
[2024-04-11 21:48] VITALS: BMI 33.0
[2024-04-11] MEDS: Pantoprazole Sodium 40 MG in 0.9% Normal Saline (100mL MB+) 100 ML 330 MG IV (22:06)
[2024-04-11] MEDS: 0.9% Normal Saline (1000mL) 1,000 ML 125 ML IV (22:06)
[2024-04-11] MEDS: Carvedilol 6.25 MG Tablet PO (22:06)
[2024-04-12 05:26] VITALS: BMI 32.9
[2024-04-12] MEDS: 0.9% Normal Saline (1000mL) 1,000 ML 125 ML IV (06:19)
[2024-04-12] MEDS: Piperacil/Tazobactam 3.375 GM in 0.9% Normal Saline (50mL MB+) 50 ML IV ×3 (06:19→20:18)
[2024-04-12 06:21] VITALS: BP 132/71; PULSE 91; RESP 16; TEMP 36.8; O2SAT 95
[2024-04-12 08:08] VITALS: O2SAT 97
[2024-04-12 08:21] LABS: Absolute Lymphocyte Count 1.81 X10^3/uL (0.83-4.51); Absolute Neutrophil Count 16.1 X10^3/uL (2.0-7.7); Basophil# 0.03 X10^3/uL; Basophil% 0.2 % (0-1); Eosinophil# 0.05 X10^3/uL; Eosinophils% 0.3 % (0-5); Hematocrit 41.1 % (40-54); Hemoglobin 13.1 g/dL (13.0-16.5); Lymphocyte # 1.81 X10^3/ul (0.83-4.51); Lymphocyte % 9.1 % (19-41); Mean Corp Hgb Conc 31.9 g/dL (32-36); Mean Corpuscular Hgb 29.2 pg (27.0-32.0); Mean Corpuscular Volume 91.5 fL (80-94); Mean Platelet Vol. 9.1 fl (6.2-12.0); Monocyte# 1.74 X10^3/uL; Monocyte% 8.7 % (0-10); NRBC Flagged by Analyzer 0 % (0-5); Neutrophil # 16.13 X10^3/uL (2.7-7.7); POSITIVE DIFFERENTIAL YES; Platelet Count 340 K/mm3 (150-450); RBC Distribution Width SD 40.2 fl (35.1-43.9); Red Blood Count 4.49 M/mm3 (4.6-6.2); White Blood Count 19.9 K/mm3 (4.4-11.0)
[2024-04-12 08:28] LABS: Differential Indicated SCAN CRITERIA MET
[2024-04-12] MEDS: Aspirin E.C. 81 MG Tablet PO (08:38)
[2024-04-12] MEDS: Carvedilol 6.25 MG Tablet PO ×2 (08:38→20:18)
[2024-04-12 08:44] VITALS: BP 137/78; PULSE 104; RESP 16; TEMP 37.6; O2SAT 97
[2024-04-12 08:46] LABS: ALB/GLOB Ratio 0.6 RATIO (0.9-2.4); AST(SGOT) 11 U/L (15-37); Alanine Aminotransfer ALT/SGPT 35 U/L (16-61); Albumin, Serum 2.5 g/dL (3.2-5.0); Alkaline Phosphatase 75 U/L (45-117); Anion Gap 6 (5-15); BUN 23 mg/dL (7-18); BUN/Creat Ratio 20.7 RATIO (10-20); Calcium,Total 8.4 mg/dL (8.5-10.1); Chloride 106 mmol/L (98-107); Creatinine, Serum 1.11 mg/dL (0.70-1.30); EST Glomerular Filtration Rate 72 mL/min (>60); Est Glom Filt Rate - Afr Amer 87 mL/min (>60); Estimated Creatinine Clearance 90.77 ml/min; Globulin 3.9 g/dL (2.2-4.2); Glucose 98 mg/dL (74-106); Potassium 3.7 mmol/L (3.5-5.1); Protein, Total 6.4 g/dL (6.4-8.2); Sodium Level 136 mmol/L (136-145)
--- NOTE | 2024-04-12 08:52 | PN.HOSP_ITS ---
Reason for Visit Reason for Visit: Diagnoses Diverticulitis of intestine, part unspecified, without perforation or abscess without bleeding (04/11/24) Subjective Subjective Pain improving, not presently having vomiting, interested in advancing diet Objective Data Objective Data Vital Signs: Vital Signs Temp Pulse Resp BP Pulse Ox O2 Del Method 99.7 F H 104 H 16 137/78 H 97 Room Air 04/12/24 08:44 04/12/24 08:44 04/12/24 08:44 04/12/24 08:44 04/12/24 08:44 04/12/24 08:44 Oxygen Delivery Method Room Air Weight: 110.3 kg Body Mass Index (BMI) 32.9 Intake & Output: Intake and Output for Last 24 Hours 04/10/24 04/11/24 04/12/24 23:59 23:59 23:59 Intake Total 1160 / 1160 1000 / 1000 Balance 1160 / 1160 1000 / 1000 Lab / Micro Data 04/12/24 07:24 04/12/24 07:24 Labs: Laboratory Results - last 24 hr 04/11/24 18:38: WBC 23.4 H, RBC 4.98, Hgb 14.7, Hct 44.9, MCV 90.2, MCH 29.5, MCHC 32.7, RDW Std Deviation 39.3, RDW Coeff of Hung 11.9, Plt Count 409, MPV 8.9, Immature Gran % (Auto) 0.500, Neut % (Auto) 81.4 H, Lymph % (Auto) 9.5 L, [place] % (Auto) 8.3, Eos % (Auto) 0.1, Baso % (Auto) 0.2, Absolute Neuts (auto) 19.1 H, Absolute Lymphs (auto) 2.23, Nucleated RBC % 0, Differential Comment SEE COMMENT, Diff Path Review May foll, Toxic Granulation RARE, Platelet Estimate SLT INC, RBC Morphology N CHROM, Anisocytosis RARE, Macrocytosis RARE, Ovalocytes RARE, Sodium 135 L, Potassium 4.0, Chloride 101, Carbon Dioxide 26.0, Anion Gap 8, BUN 21 H, Creatinine 1.36 H, Estim Creat Clear Calc 74.15, Est GFR (MDRD) Af Amer 69, Est GFR (MDRD) Non-Af 57 L, BUN/Creatinine Ratio 15.4, G lucose 114 H, Calcium 8.9, Total Bilirubin 0.90, AST 15, ALT 46, Alkaline Phosphatase 88, Total Protein 7.6, Albumin 3.0 L, Globulin 4.6 H, A lbumin/Globulin Ratio 0.7 L, Lipase 16 04/11/24 19:15: Lactic Acid 0.9 04/11/24 19:45: Urine Color Yellow, Urine Clarity Clear, Urine pH 6.0, Ur Specific [place] 1.010, Urine Protein 15 H, Urine Glucose (UA) Normal, Urine Ketones 50 H, Urine Occult Blood 25 H, Urine Nitrite Negative, Urine Bilirubin Negative, Urine Urobilinogen Normal, Ur Leukocyte Esterase Negative, Urine RBC 0-5 SEEN, Urine WBC 0-5 SEEN, Ur Squamous Epith Cells 0-5 SEEN, Urine Bacteria 1+, Urine Mucus 1+ 04/12/24 07:24: WBC 19.9 H, RBC 4.49 L, Hgb 13.1, Hct 41.1, MCV 91.5, MCH 29.2, MCHC 31.9 L, RDW Std Deviation 40.2, RDW Coeff of Hung 12.0, Plt Count 340, MPV 9.1, Immature Gran % (Auto) 0.700, Neut % (Auto) 81.0 H, Lymph % (Auto) 9.1 L, [place] % (Auto) 8.7, Eos % (Auto) 0.3, Baso % (Auto) 0.2, Absolute Neuts (auto) 16.1 H, Absolute Lymphs (auto) 1.81, Nucleated RBC % 0, Sodium 136, Potassium 3.7, Chloride 106, Carbon Dioxide 24.0, Anion Gap 6, BUN 23 H, Creatinine 1.11, Estim Creat Clear Calc 90.77, Est GFR (MDRD) Af Amer 87, Est GFR (MDRD) Non-Af 72, BUN/Creatinine Ratio 20.7 H, Glucose 98, Calcium 8.4 L, Total Bilirubin 0.70, AST 11 L, ALT 35, Alkaline Phosphatase 75, Total Protein 6.4, Albumin 2.5 L, Globulin 3.9, Albumin/Globulin Ratio 0.6 L Radiography Diagnostic Testing: Radiology Impression Abdomen/Pelvis CT 04/11/24 19:00 IMPRESSION: Diffuse diverticular disease of the colon and acute diverticulitis at the junction of the distal descending and sigmoid colon without evidence for peridiverticular abscess. Other findings as above Electronically Signed: Zak Arango MD at 20:11 EDT Reading Location ID and State: [facility] / [place] Tel , Service support , Physical Exam Narrative General: Alert, oriented, no apparent distress HEENT: Atraumatic, normocephalic Eyes: Anicteric, normal conjunctiva, extraocular movements grossly intact Neck: Supple Respiratory: Clear to auscultation bilaterally, normal respiratory effort Cardiovascular: Regular rate and rhythm GI: Slightly firm, no rebound, guarding, rigidity Extremities: No edema Musculoskeletal: Moving all extremities Neuro: No overt focal neurological deficits Skin: No rashes appreciated Psych: Cooperative Assessment & Plan Assessment/Plan (1) Acute diverticulitis: PLAN: Plan # Acute diverticulitis -CT scan demonstrated acute diverticulitis at junction of the distal descending and sigmoid colon without evidence of peridiverticular abscess -Had elevated white blood cell count on arrival, slightly down trended with intervention -Was n.p.o., no clear liquid diet, advance as tolerated -Antibiotics and IV fluids -Supportive care #Hypertension -Continue Coreg, as needed hydralazine # Obesity -Weight loss and lifestyle changes encouraged #DVT ppx: Lovenox subcu Ana Fernandes MD Time spent in the patient's overall evaluation,decision-making process, review of diagnostic data, adjustment of management, discussion with other providers, nursing nursing and ancillary staff involved in patient's care documentation, 25 minutes Charges/Coding Visit Charges Inpatient E&M: 55176 [facility] Hosp L1
--- NOTE | 2024-04-12 08:56 | CASEMGMT ---
YVETTE GUAMAN Assessment Face to Face with patient for initial transition planning/care coordination assessment. YVETTE GUAMAN introduced self and role at [facility], pt voices understanding. Pt is A&Ox4 and is resting comfortably in bed and is calm. Care providers, pharmacy, and demographics verified. Admitting dx: Acute Diverticulitis PCP: Brooke Specialists: Denies Preferred Pharmacy: [facility] Insurance: [facility] (Pt works at [facility]) Prescription Benefit: Yes LNOK: Ana Spaulding (W) Living Arrangements: Pt lives with his in a two story home with a BM and two steps to enter ADLs/IADLs: Ind Transportation: Self, DME: [employer]. Pt denies all other DME uses or needs HHC/SNF: Denies history or needs Pt?s goal: Home no needs Plan: Home no needs. 6-Click is 24. Pt states that his is an RN and can help care for him at home. Pt states that he feels safe with this plan and denies the need for HHC or OP Tx. Pt denies any further questions or concerns at this time. Kirby Osborn RN, CM
[2024-04-12] MEDS: Pantoprazole Sodium 40 MG in 0.9% Normal Saline (100mL MB+) 100 ML 330 MG IV ×2 (10:44→20:18)
--- NOTE | 2024-04-12 11:19 | CASEMGMT ---
Social Work SW spoke w/pt about LW/POA, he confirmed is POA. SW asked pt to have bring in the documents as able, pt states understanding, will do so. CHELO Huston
[2024-04-12] MEDS: Enoxaparin 40 MG/0.4 ML Syringe SC (13:29)
[2024-04-12 13:34] VITALS: BP 144/86; PULSE 97; RESP 18; TEMP 37.3; O2SAT 100
[2024-04-12 17:21] VITALS: BP 137/83; PULSE 94; RESP 16; TEMP 37.1; O2SAT 96
[2024-04-12 20:16] VITALS: BP 149/85; PULSE 95; RESP 16; TEMP 37.3; O2SAT 98
[2024-04-13] MEDS: Piperacil/Tazobactam 3.375 GM in 0.9% Normal Saline (50mL MB+) 50 ML IV (05:49)
[2024-04-13 05:50] VITALS: BP 145/86; PULSE 90; RESP 16; TEMP 37.1; O2SAT 96
[2024-04-13 05:51] VITALS: BMI 32.8
[2024-04-13 06:34] LABS: Absolute Lymphocyte Count 2.44 X10^3/uL (0.83-4.51); Absolute Neutrophil Count 11.9 X10^3/uL (2.0-7.7); Basophil# 0.04 X10^3/uL; Basophil% 0.2 % (0-1); Eosinophils% 0.6 % (0-5); Hematocrit 40.1 % (40-54); Hemoglobin 12.9 g/dL (13.0-16.5); Lymphocyte # 2.44 X10^3/ul (0.83-4.51); Lymphocyte % 15.1 % (19-41); Mean Corp Hgb Conc 32.2 g/dL (32-36); Mean Corpuscular Hgb 29.2 pg (27.0-32.0); Mean Corpuscular Volume 90.7 fL (80-94); Monocyte# 1.57 X10^3/uL; Monocyte% 9.7 % (0-10); NRBC Flagged by Analyzer 0 % (0-5); Neutrophil # 11.89 X10^3/uL (2.7-7.7); Neutrophil % 73.8 % (47-70); POSITIVE DIFFERENTIAL YES; Platelet Count 330 K/mm3 (150-450); RBC Distribution Width CV 11.8 % (11.6-14.6); RBC Distribution Width SD 39.4 fl (35.1-43.9); Red Blood Count 4.42 M/mm3 (4.6-6.2); White Blood Count 16.1 K/mm3 (4.4-11.0)
[2024-04-13 06:40] LABS: Differential Indicated SCAN CRITERIA MET
[2024-04-13 06:58] VITALS: O2SAT 95
[2024-04-13 07:02] LABS: ALB/GLOB Ratio 0.6 RATIO (0.9-2.4); AST(SGOT) 24 U/L (15-37); Alanine Aminotransfer ALT/SGPT 37 U/L (16-61); Albumin, Serum 2.3 g/dL (3.2-5.0); Alkaline Phosphatase 65 U/L (45-117); Anion Gap 7 (5-15); BUN 12 mg/dL (7-18); BUN/Creat Ratio 12.4 RATIO (10-20); Calcium,Total 8.3 mg/dL (8.5-10.1); Chloride 107 mmol/L (98-107); Creatinine, Serum 0.96 mg/dL (0.70-1.30); EST Glomerular Filtration Rate 84 mL/min (>60); Est Glom Filt Rate - Afr Amer 102 mL/min (>60); Estimated Creatinine Clearance 104.86 ml/min; Glucose 108 mg/dL (74-106); Potassium 3.6 mmol/L (3.5-5.1); Protein, Total 6.3 g/dL (6.4-8.2); Sodium Level 139 mmol/L (136-145)
[2024-04-13] MEDS: Aspirin E.C. 81 MG Tablet PO (08:57)
[2024-04-13 08:59] VITALS: BP 157/97; PULSE 94; RESP 18; TEMP 36.6; O2SAT 96
[2024-04-13] MEDS: Carvedilol 6.25 MG Tablet PO (09:01)
[2024-04-13] MEDS: Pantoprazole Sodium 40 MG in 0.9% Normal Saline (100mL MB+) 100 ML 330 MG IV (10:18)
--- NOTE | 2024-04-13 11:50 | DCINST_ITS ---
Discharge Instructions Diet Discharge Diet: Low fat / Low cholesterol Activity Discharge Activity: Return to Normal Activity Dressing / Incision Call your doctor if you observe: Fever of 101 or Higher, Shortness of breath, Dizziness, Fainting spells, Swelling in the ankles, Chest pain and Increased palpitations (irregular heartbeat) Follow Up Care Test Results: Test results from this visit will be discussed in further detail at your follow- up appointment, if applicable. Discharge Plan Admission Admit Date/Time: 04/11/24 20:31 Primary Reason for Your Visit: ACUTE DIVERTICULITIS Attending Provider: Franco Ding Primary Care Provider: Abena Cox Consulting Providers: Carol Wilkerson; Ana Fernandes Discharge Orders/Prescriptions Prescriptions: New amoxicillin-pot clavulanate 875-125 mg tablet 1 tab PO BID 7 Days Qty: 14 0RF Continued multivitamin [Daily Multiple] 1 EACH tablet 1 ea PO DAILY carvedilol [Coreg] 6.25 MG tablet 6.25 mg PO BID aspirin 81 MG tablet 81 mg PO DAILY@0800 red yeast rice 600 MG capsule 600 mg PO DAILY Fish Oil 500 MG capsule,delayed release(DR/EC) 500 mg PO DAILY glucosamine HCl 1,500 MG tablet 1,500 mg PO DAILY Referrals / Follow Up: Abena Cox MD [Primary Care Provider] - Within 1 Week Disposition Disposition (needs filled in before D/C Order can be placed): Home, Self Care
[2024-04-13 12:20] VITALS: BP 148/88; PULSE 90; RESP 18; TEMP 37.1; O2SAT 95
--- NOTE | 2024-04-13 13:48 | PCM.DC.SUM ---
Providers Date of Admission: 04/11/24 Primary Care Physician: Dr. Abnea Cox MD Reason For Visit: ACUTE DIVERTICULITIS Diagnosis Discharge Diagnosis (1) Acute diverticulitis: Status: Acute Code(s): K57.92 - Diverticulitis of intestine, part unspecified, without perforation or abscess without bleeding Medications at Discharge Home Medications aspirin 81 mg tablet,delayed release 81 mg PO DAILY@0800 blood thinner 06/06/18 carvedilol 6.25 mg tablet (Coreg) 6.25 mg PO BID heart 06/06/18 glucosamine HCl 1,500 mg tablet 1,500 mg PO DAILY supplement 06/06/18 multivitamin (Daily Multiple tablet) 1 ea PO DAILY supplement 06/06/18 omega 3-dha 60 mg-epa 90 mg-fish oil 500 mg capsule, delayed release (Fish Oil) 500 mg PO DAILY supplement 06/06/18 red yeast rice 600 mg capsule 600 mg PO DAILY hld 06/06/18 amoxicillin 875 mg-potassium clavulanate 125 mg tablet 1 tab PO BID 7 days #14 tabs 04/13/24 Hospital Course Operations None Procedures None Summary of Care Provided Minutes Spent on Discharge: 36 Hospital Course: Per HPI: The patient is a 58 y/o M w/ PMHx: HTN, HLD, Obesity who presents to the [facility] ED on 04/11/24 with history of 8 days of progressively worsening abdominal discomfort as well as fever and chills with lower bilateral quadrant abdominal discomfort with diarrhea which has become constant with intermittent sharp stabbing with outpatient evaluation and noted elevated WBC of 22,000 with referral to ED for further evaluation given concerns. He notes that he has been having at least 2-3 liquidy stools a day and has had lack of appetite. He has not had any nausea or emesis. He does state that he has been taking Pepto-Bismol for stomach discomfort which has made his stool dark in appearance. He notes that he did see his doctor on day of presentation and had a's CAT scan ordered as well as labs but unfortunately the CAT scan was going to be delayed until the following Sunday and when his labs returned abnormal he was referred to the ED to be evaluated more quickly. He currently rates his discomfort 7 out of 10 in severity but when he attempts to move it becomes 10 out of 10. He has a constant dull aching pain that he describes as a constant shock which worsens when he is active or attempts to be. Workup in the ED included T96.9 Temporally, heart rate 120, BP 145/76, respiratory rate 18, 96% on room air, CBC with WC 23.4, human 14.7, platelet 409 with left shift, CMP with sodium 135, BUN/creatinine 21/1.36, GFR 57, glucose 114, hepatic profile not marked appearing, lipase 16, lactic acid 0.9, urinalysis not marked appearing, CT abdomen and pelvis with diffuse diverticular disease of the colon and acute diverticulitis at the junction of the distal descending and sigmoid colon without any evidence for peridiverticular abscess. In the ED patient ministered 1 L normal saline, morphine 4 mg IV x 1, Toradol 50 mg IV x 1, Dilaudid 1 mg IV x 1, Zosyn 3.75 g IV x 1. Hospital Course: 1. Acute diverticulitis?58-year-old male presented to the hospital with progressively worsening abdominal pain for about 8 days. He presented to the hospital and had a CT scan that demonstrated acute diverticulitis in the descending colon. No abscess or perforation was noted. He was placed on n.p.o. initially and was able to advance as tolerated. He was started on Zosyn with significant improvement in his symptoms. I discussed with him the possibility of discharge today he expressed understanding of the risk benefits of going home and would like to go home today as he is not having any further abdominal pain and is tolerating a diet very well. He remains afebrile, and his white count has improved to 16,000 from a peak of 23,000. My office will continue with Augmentin for another 7 days on discharge Physical Exam Narrative General: Alert, Oriented x3, Cooperative, No apparent distress HEENT: Atraumatic, PERRLA, EOMI, Normocephalic Oral: Moist Mucosa Neck: Supple, No JVD Lungs: Clear to auscultation, Normal air movement, No rhonchi, No wheeze, No rales Cardiovascular: Regular rate, Regular Rhythm, Normal S1, Normal S2, No murmurs Abdomen: Soft, Non Tender, Non-Distended, No Hepato-splenomegaly Extremities: No edema, Capillary Refill Less than 3 Seconds Skin: No rashes, No breakdown Musculoskeletal: No Tenderness to Palpation of Joints or Extremities Neurological: No focal neurological deficits, Motor Exam 5/5 strength throughout, Sensory exam intact to light touch and pain Psych/Mental Status: Normal Affect, Appropriate Weight / BMI Weight Weight: 242 lb 11.663 oz Body Mass Index (BMI) 32.8 ABG / Lab / Microbiology Data 04/13/24 05:43 04/13/24 05:43 Laboratory: Laboratory Results - last 24 hr 04/13/24 05:43: WBC 16.1 H, RBC 4.42 L, Hgb 12.9 L, Hct 40.1, MCV 90.7, MCH 29.2, MCHC 32.2, RDW Std Deviation 39.4, RDW Coeff of Hung 11.8, Plt Count 330, MPV 9.0, Immature Gran % (Auto) 0.600, Neut % (Auto) 73.8 H, Lymph % (Auto) 15.1 L, Cooke % (Auto) 9.7, Eos % (Auto) 0.6, Baso % (Auto) 0.2, Absolute Neuts (auto) 11.9 H, Absolute Lymphs (auto) 2.44, Nucleated RBC % 0, Diff Path Review February, Sodium 139, Potassium 3.6, Chloride 107, Carbon Dioxide 25.0, Anion Gap 7, BUN 12, Creatinine 0.96, Estim Creat Clear Calc 104.86, Est GFR (MDRD) Af Amer 102, Est GFR (MDRD) Non-Af 84, BUN/Creatinine Ratio 12.4, Glucose 108 H, Calcium 8.3 L, Total Bilirubin 0.50, AST 24, ALT 37, Alkaline Phosphatase 65, Total Protein 6.3 L, Albumin 2.3 L, Globulin 4.0, Albumin/Globulin Ratio 0.6 L D/C Instructions Discharge Diet: Low fat / Low cholesterol Call your doctor if you observe: Fever of 101 or Higher, Shortness of breath, Dizziness, Fainting spells, Swelling in the ankles, Chest pain and Increased palpitations (irregular heartbeat) Meaningful Use Info Meaningful Use Meaningful Use Diagnoses (Choose all that apply): None applicable Ischemic Stroke Statin Dosing Therapy Reference: STATIN DOSE THERAPY REFERENCE: * Patients > 75 years receive moderate or high dose statin therapy. * Patients 75 years or YOUNGER should receive HIGH intensity statin dose unless contraindicated. You will be required to document reason for non-treatment if statin daily dose does not meet guidelines. HIGH DOSE STATIN THERAPY DAILY Atorvastatin > than or = to 40 mg Rosuvastatin > than or = to 20 mg Amlodipine + Atorvastatin > than or = to 2.5/40 mg Ezetimibe + Simvastatin 10/80 mg Simvastatin 80mg Discharge Plan Admission Admit Date/Time: 04/11/24 20:31 Primary Reason for Your Visit: ACUTE DIVERTICULITIS Attending Provider: Franco Ding Primary Care Provider: Abena Cox Consulting Providers: Carol Wilkerson; Ana Fernandes Discharge Orders/Prescriptions Prescriptions: New amoxicillin-pot clavulanate 875-125 mg tablet 1 tab PO BID 7 Days Qty: 14 0RF Continued multivitamin [Daily Multiple] 1 EACH tablet 1 ea PO DAILY carvedilol [Coreg] 6.25 MG tablet 6.25 mg PO BID aspirin 81 MG tablet 81 mg PO DAILY@0800 red yeast rice 600 MG capsule 600 mg PO DAILY Fish Oil 500 MG capsule,delayed release(DR/EC) 500 mg PO DAILY glucosamine HCl 1,500 MG tablet 1,500 mg PO DAILY Referrals / Follow Up: Abena Cox MD [Primary Care Provider] - Within 1 Week Disposition Disposition (needs filled in before D/C Order can be placed): Home, Self Care Charges/Coding Visit Charges Inpatient E&M: 29435 Disch Hosp >30min
[2024-04-14 15:26] LABS: Pathologist Review Reviewed
[2024-04-14 15:26] LABS: Pathologist Review Reviewed
[2024-04-14 15:28] LABS: Pathologist Review Reviewed
== END 2024-04-13 12:18 | disposition home or self-care (01) | DRG 392 ==
LOC: ED 20:37 → MS3 20:49
PROVIDERS: Internal Medicine; Nurse Practitioner; Admitting Provider Family Medicine; Emergency Provider Emergency Medicine; PCP Internal Medicine; Visit Provider Family Medicine
DX: K57.32 Diverticulitis of large intestine without perforation or abscess without bleeding (principal); E66.9 Obesity, unspecified; I12.9 Hypertensive chronic kidney disease with stage 1 through stage 4 chronic kidney disease, or unspecified chronic kidney disease; E78.5 Hyperlipidemia, unspecified; N18.2 Chronic kidney disease, stage 2 (mild); Z68.33 Body mass index [BMI] 33.0-33.9, adult; Z79.82 Long term (current) use of aspirin; Z79.899 Other long term (current) drug therapy
CPT/HCPCS: 36415; 74177; 80053; 81001; 83605; 83690; 85025; 94668; 99252; 99285; J7030; J7050; Q9967; A4216; G0463; J2405

== ENCOUNTER → 2024-04-11 | Outpatient (CLI) | payer OTHER, SELFPAY ==
[2024-04-11 16:46] LABS: Absolute Lymphocyte Count 1.88 X10^3/uL (0.83-4.51); Absolute Neutrophil Count 18.9 X10^3/uL (2.0-7.7); Basophil# 0.05 X10^3/uL; Basophil% 0.2 % (0-1); Eosinophil# 0.02 X10^3/uL; Eosinophils% 0.1 % (0-5); Hematocrit 45.3 % (40-54); Hemoglobin 14.8 g/dL (13.0-16.5); Lymphocyte # 1.88 X10^3/ul (0.83-4.51); Lymphocyte % 8.3 % (19-41); Mean Corp Hgb Conc 32.7 g/dL (32-36); Mean Corpuscular Hgb 29.1 pg (27.0-32.0); Mean Corpuscular Volume 89.2 fL (80-94); Mean Platelet Vol. 8.9 fl (6.2-12.0); Monocyte# 1.77 X10^3/uL; Monocyte% 7.8 % (0-10); NRBC Flagged by Analyzer 0 % (0-5); Neutrophil # 18.91 X10^3/uL (2.7-7.7); Neutrophil % 83.2 % (47-70); POSITIVE DIFFERENTIAL YES; Platelet Count 409 K/mm3 (150-450); RBC Distribution Width CV 11.7 % (11.6-14.6); RBC Distribution Width SD 38.5 fl (35.1-43.9); Red Blood Count 5.08 M/mm3 (4.6-6.2); White Blood Count 22.7 K/mm3 (4.4-11.0)
[2024-04-11 16:53] LABS: Differential Indicated SCAN CRITERIA MET
[2024-04-11 17:11] LABS: ALB/GLOB Ratio 0.7 RATIO (0.9-2.4); AST(SGOT) 18 U/L (15-37); Alanine Aminotransfer ALT/SGPT 45 U/L (16-61); Alkaline Phosphatase 85 U/L (45-117); Anion Gap 11 (5-15); BUN 20 mg/dL (7-18); BUN/Creat Ratio 17.2 RATIO (10-20); Calcium,Total 8.7 mg/dL (8.5-10.1); Chloride 103 mmol/L (98-107); Creatinine, Serum 1.16 mg/dL (0.70-1.30); EST Glomerular Filtration Rate 68 mL/min (>60); Est Glom Filt Rate - Afr Amer 82 mL/min (>60); Globulin 4.5 g/dL (2.2-4.2); Glucose 120 mg/dL (74-106); Potassium 3.7 mmol/L (3.5-5.1); Protein, Total 7.5 g/dL (6.4-8.2); Sodium Level 136 mmol/L (136-145)
[2024-04-11 17:17] LABS: Platelet Estimate SLT INC (ADEQ); Red Cell Morphology N CHROM NORMAL (NORM C&C); Toxic Granulation 1+
[2024-04-11 17:18] LABS: Anisocytosis RARE; Macrocytosis RARE
[2024-04-14 15:25] LABS: Pathologist Review Reviewed
== END | disposition home or self-care (01) ==
LOC: LAB 16:09
PROVIDERS: PCP Internal Medicine; Referring Provider Clinical Nurse Specialist; Visit Provider Clinical Nurse Specialist
DX: R19.7 Diarrhea, unspecified (principal); R10.31 Right lower quadrant pain; R10.32 Left lower quadrant pain
CPT/HCPCS: 36415; 80053; 84443; 85025

== ENCOUNTER → 2024-04-14 | Outpatient (CLI) | payer OTHER, SELFPAY ==
[2024-04-14 10:52] LABS: Absolute Lymphocyte Count 1.69 X10^3/uL (0.83-4.51); Absolute Neutrophil Count 11.7 X10^3/uL (2.0-7.7); Basophil# 0.05 X10^3/uL; Basophil% 0.3 % (0-1); Eosinophil# 0.12 X10^3/uL; Eosinophils% 0.8 % (0-5); Hematocrit 44.5 % (40-54); Hemoglobin 14.2 g/dL (13.0-16.5); Lymphocyte # 1.69 X10^3/ul (0.83-4.51); Lymphocyte % 11.5 % (19-41); Mean Corp Hgb Conc 31.9 g/dL (32-36); Mean Corpuscular Hgb 28.7 pg (27.0-32.0); Mean Corpuscular Volume 90.1 fL (80-94); Mean Platelet Vol. 9.2 fl (6.2-12.0); Monocyte# 1.08 X10^3/uL; Monocyte% 7.3 % (0-10); NRBC Flagged by Analyzer 0 % (0-5); Neutrophil # 11.69 X10^3/uL (2.7-7.7); Neutrophil % 79.6 % (47-70); Platelet Count 421 K/mm3 (150-450); RBC Distribution Width CV 11.6 % (11.6-14.6); RBC Distribution Width SD 38.4 fl (35.1-43.9); Red Blood Count 4.94 M/mm3 (4.6-6.2); White Blood Count 14.7 K/mm3 (4.4-11.0)
== END | disposition home or self-care (01) ==
LOC: LAB 09:40
PROVIDERS: PCP Internal Medicine; Referring Provider Surgery; Visit Provider Surgery
DX: D72.829 Elevated white blood cell count, unspecified (principal)
CPT/HCPCS: 36415; 85025

== ENCOUNTER → 2024-04-18 | Outpatient (CLI) | payer OTHER, SELFPAY ==
[2024-04-18 14:23] LABS: Absolute Neutrophil Count 7.2 X10^3/uL (2.0-7.7); Basophil# 0.06 X10^3/uL; Basophil% 0.5 % (0-1); Eosinophils% 2.6 % (0-5); Hematocrit 45.8 % (40-54); Hemoglobin 14.8 g/dL (13.0-16.5); Lymphocyte % 25.2 % (19-41); Mean Corp Hgb Conc 32.3 g/dL (32-36); Mean Corpuscular Hgb 28.9 pg (27.0-32.0); Mean Corpuscular Volume 89.5 fL (80-94); Mean Platelet Vol. 9.2 fl (6.2-12.0); Monocyte# 0.99 X10^3/uL; Monocyte% 8.6 % (0-10); NRBC Flagged by Analyzer 0 % (0-5); Neutrophil # 7.21 X10^3/uL (2.7-7.7); Neutrophil % 62.7 % (47-70); Platelet Count 505 K/mm3 (150-450); RBC Distribution Width CV 11.6 % (11.6-14.6); RBC Distribution Width SD 37.4 fl (35.1-43.9); Red Blood Count 5.12 M/mm3 (4.6-6.2); White Blood Count 11.5 K/mm3 (4.4-11.0)
== END | disposition home or self-care (01) ==
PROVIDERS: PCP Internal Medicine; Referring Provider Internal Medicine; Visit Provider Internal Medicine
DX: K57.92 Diverticulitis of intestine, part unspecified, without perforation or abscess without bleeding (principal)
CPT/HCPCS: 36415; 85025

== ENCOUNTER 2024-05-05 12:00 | Day surgery (SDC) | payer OTHER, SELFPAY ==
[2024-05-05] VITALS (8 sets, daily range): BP systolic 114–121; BP diastolic 69–85; PULSE 85–102; RESP 16; TEMP 36.4–37.3; O2SAT 96–97; BMI 31.4
--- NOTE | 2024-05-05 12:04 | HP.PCM_ITS ---
History and Physical Date of Admission: 05/05/24 Allergies minocycline Allergy (Verified 04/14/24 10:55) Rash Medications ?Medication ?Instructions ?Recorded ?Confirmed ?Type aspirin 81 mg tablet,delayed 81 mg PO DAILY@0800 blood thinner 06/06/18 04/14/24 History release carvedilol 6.25 mg tablet (Coreg) 6.25 mg PO BID heart 06/06/18 04/14/24 History glucosamine HCl 1,500 mg tablet 1,500 mg PO DAILY supplement 06/06/18 04/14/24 History multivitamin (Daily Multiple 1 ea PO DAILY supplement 06/06/18 04/14/24 History tablet) omega 3-dha 60 mg-epa 90 mg-fish 500 mg PO DAILY supplement 06/06/18 04/14/24 History oil 500 mg capsule, delayed release (Fish Oil) red yeast rice 600 mg capsule 600 mg PO DAILY hld 06/06/18 04/14/24 History amoxicillin 875 mg-potassium 1 tab PO BID 7 days #14 tabs 04/13/24 04/14/24 Rx clavulanate 125 mg tablet PFSH Medical History CKD (chronic kidney disease), stage II HLD (hyperlipidemia) Obesity Hypertension Surgical History History of dental surgery History of vasectomy Family History Mother Diabetes DementiaFather Diabetes CAD (coronary artery disease) Heart disease Hypertension Myocardial infarction Social History household members: spouse Smoking Status: Never smoker alcohol intake: never substance use type: does not use HPI HPI HPI: 58-year-old gentleman was hospitalized at the [facility] April 11 through April 13, 2024 with a diagnosis of acute sigmoid diverticulitis in the proximal sigmoid. The patient presented with an 8-day history of pain fever and chills. His white blood cell count was 23,000. He was having 2-3 liquidy stools per day. He had been taking Pepto-Bismol for stomach discomfort. CT scan showed acute diverticulitis at the sigmoid descending colon junction. There is felt to be no abscess or perforation. The day after admission his white count was 19,000 and the day of discharge his white count was still elevated to 16,000. He was discharged on Augmentin and iron 75 mg twice daily for 7 days. I have personally reviewed his CT scan and there is significant mount inflammatory change of the sigmoid colon with mesenteric stranding. There are multiple air bubbles potentially within diverticula hard to tell whether any of them are transmural. It is of note that on June 07, 2018 I performed a colonoscopy for him. Pancolonic diverticulosis was identified. No polyps or mass lesions. Mild hemorrhoids. The patient's only been home for barely 24 hours. He still has pain in the left lower quadrant and in the left lower back buttock area. Fevers have ceased. He did require some Pepto-Bismol last night because of gas cramping. He is passing some stool and some flatus. No fever ROS General General: Yes fatigue; No weight change, appetite, colon cancer, breast cancer or weakness HEENT HEENT: Yes eye injury; No difficulty swallowing, eye surgery, swollen glands or hoarseness Endo Endocrine: No thyroid disease, diabetes mellitus, thyroid cancer, Hair loss, heat intolerance or cold intolerance Skin Skin: No rash or changing moles Musc Musculoskeletal: No back problems, arthritis, rheumatoid arthritis, gout or joint pain Cardio Cardiovascular: Yes high blood pressure; No murmur, pacemaker, heart disease, atrial fibrillation, heart attack, heart stent, palpitations, shortness of breat with exertion or chest pain Psych Psychiatric: No depression, anxiety or hearing voices Resp Respiratory: No shortness of breath, No sleep apnea, No cough, No COPD, No asthma, No emphysema and No wheezing Gastro Gastrointestinal: Yes abdominal pain, No nausea or vomiting, Yes diarrhea, No constipation, No blood in stool, Yes acid reflux, No hemorrhoids, No ulcers, No gallbladder problem and No black,tarry stools Germán Hematologic: No blood thinners, No blood disorders, No bleeding, No anemia and No blood clots Neuro Neurologic: No system reviewed and no additional complaints, except as documented, No as per HPI, No abnormal gait, No abnormal hearing, No abnormal movements, No abnormal speech, No behavioral changes, No burning sensations, No confusion, No convulsions, No disequilibrium, No dizziness, No localized weakne ss, No frequent falls, No headache(s), No lack of coordination, No loss of vision, No memory loss, Yes numbness, No other visual disturbances, No radicular pain, No restless legs, No sensory deficit, No syncope, Yes tingling, No tremor(s), No weakness and No other Exam Const General: cooperative, healthy appearing, comfortable and no acute distress Nutritional Appearance: obese Orientation: alert, awake and oriented x3 HENMT Head: normal to inspection Eyes General: appearance normal, both eyes and all related structures Neck Neck: normal visual inspection Chest Chest palpation & inspection: normal inspection of the chest Resp Effort & Inspection: normal respiratory effort Auscultation: clear to auscultation bilaterally Cardio Rate: regular rate Rhythm: regular rhythm GI Palpation: soft Other: Bowel sounds present, occasional tinkles, slightly distended, mild tenderness palpation left lower quadrant Musc Cervical Spine: normal cervical lordosis Skin General: no rashes or lesions noted Neuro General: patient alert, patient awake and patient oriented x3 Extrem General: no calf tenderness Psych Appearance: grossly normal Assessment and Plan Assessment and Plan (1) Acute diverticulitis: Status: Acute Plan: 58-year-old gentleman with suspected acute sigmoid diverticulitis. He still has leukocytosis at 14.6 thousand. He is still symptomatic. He was discharged on Augmentin 875 mg twice daily orally. I recommended he backs down from full liquids to clear liquids. He may use Ensure clear. He is to stay mobilized and do work on his breathing. He is to have an appointment with Dr. Abena Cox's tomorrow but I have asked him to see if he could reschedule to Sunday so he can have repeat lab work CBC with differential prior to that. The patient is aware that I will be out of town for approximately 12 days. I recommend to him a colonoscopy with possible biopsy or polypectomy as indicated. Tentatively we will schedule him for May 05, 2024. The patient is to notify his primary care physician or this office if he still is having discomfort at the completion of his 1 week of antibiotic so that it can be renewed. The patient is aware that the current diagnosis is significant proximal sigmoid diverticulitis with significant phlegmon and I cannot distinctly tell that there is not a microperforation. Ongoing conservative measures and medical care are indicated. He has had an opportunity to ask and have questions answered. Pending his progress plan on pursuing the scheduled colonoscopy. Copy: Dr. Abena Nichols M.D., FColinS. I have examined the patient and the H&P has been reviewed. There are no clinical changes since date of exam. Fan Nichols M.D., F.Michael.C.S.
[2024-05-05] MEDS: Lactated Ringers 1,000 ML 15 ML IV (12:17)
--- NOTE | 2024-05-05 12:56 | PRE.ANES_ITS ---
ASA Classification* ASA Classification ASA Classification: 2 Assessment & Plan Anesthesia* Anesthesia Assessment Anesthesia Assessment: Discussed sedation and/or anesthesia options, risks, benefits, and alternatives with patient/parents/legal guardian/POA. Questions invited. The patient/parents/legal guardian/POA seems to understand and agrees to proceed with anesthesia plan. Reviewed the physical assessment, medical history, allergy history and patient home medications list prior to surgery/procedure/anesthetic and documented any changes. Performed airway and anesthesia risk assessments. Anesthesia Type Anesthesia Type: MAC Anesthesia Focused Assessment* Temperature: 97.6 F Pulse Rate: 87 Blood Pressure: 114/85 Respiratory Rate: 16 Pulse Ox: 96 Airway Assessment Mouth opens: >3 cm Mallampati Score: II Focused Labs Anesthesia Preop lab: CBC WBC 11.5 K/mm3 (4.4-11.0) H 04/18/24 13:27 RBC 5.12 M/mm3 (4.6-6.2) 04/18/24 13:27 Hgb 14.8 g/dL (13.0-16.5) 04/18/24 13:27 Hct 45.8 % (40-54) 04/18/24 13:27 Plt Count 505 K/mm3 (150-450) H 04/18/24 13:27 CHEMISTRY Potassium 3.6 mmol/L (3.5-5.1) 04/13/24 05:43 Sodium 139 mmol/L (136-145) 04/13/24 05:43 BUN 12 mg/dL (7-18) 04/13/24 05:43 Creatinine 0.96 mg/dL (0.70-1.30) 04/13/24 05:43 Glucose 108 mg/dL (74-106) H 04/13/24 05:43 TSH 1.80 uIU/mL (0.358-3.74) 04/11/24 16:24 COAG Pre-Assessment Diagnosis/Proposed Procedure Planned Operative Procedure(s): COLONOSCOPY Anesthesia History 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 When Was Last Pacemaker Check QUESTION #4 FULL TEXT: You/Your Family Experience fever (hyperthermia) with Anesthesia Last Oral Intake Last Oral intake: Last Oral Intake NPO since 20:15 05/05/24 12:14 Meds taken in AM with sips of water? 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 Female No 05/01/24 12:42 HX of Motion Sickness Yes 05/01/24 12:42 HX of N/V After Surgery No 05/01/24 12:42 Non-Smoker Yes 05/01/24 12:42 Duration of Surgery greater No 05/01/24 12:42 than 60 minutes Number of Risk Factors 2 05/01/24 12:42 PONV Score Moderate Risk 05/01/24 12:42 Height & Weight Height & Weight: Anesthesia: Height & Weight Height 6 ft 05/05/24 12:14 Weight: 105.2 kg 05/05/24 12:14 Body Mass Index (BMI) 31.4 05/05/24 12:14 Respiratory Assessment Respiratory Assessment - 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 Has anyone observed you stop No 05/01/24 12:42 breathing during sleep? STOP Results Negative 05/01/24 12:42 QUESTION #5 FULL TEXT : Do you snore loudly (louder than talking or can be heard through closed doors)? 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 Specify any problems Hx of Preganancy in last 3 N/A 05/01/24 12:42 Months Nurse Filling Out Transfusion SFRANTZ 05/01/24 12:42 & Questions: Date: 05/01/24 05/01/24 12:42 Time: 12:44 05/01/24 12:42 Patient unable to answer at this time (ie. 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 warden: /Reproductive Hx- section forest fire warden Hx Now No 05/01/24 12:42 Gestational Age (in weeks): EDC: Hx Hx Para Hx Section SAB No 05/01/24 12:42 Active Medications Active Medications: Current Medications Generic Name Dose Route Start Last Admin Trade Name Freq PRN Reason Stop Dose Admin Lactated Ringer's 1,000 mls @ 15 mls/hr 05/05/24 12:15 05/05/24 12:17 IV 15 mls/hr .Q48H LETY Administration PFSH Medical History Hard of hearing Frequency of urination Back pain Hiatal hernia with GERD Wears glasses Cancer History of diverticulitis Gastric reflux Non-smoker LLQ abdominal pain CKD (chronic kidney disease), stage II HLD (hyperlipidemia) Obesity Hypertension Home Medications ?Medication ?Instructions ?Recorded ?Last Taken ?Type carvedilol 6.25 mg tablet (Coreg) 6.25 mg PO BID heart 06/06/18 05/05/24 History glucosamine HCl 1,500 mg tablet 1,500 mg PO DAILY supplement 06/06/18 Unknown History multivitamin (Daily Multiple 1 ea PO DAILY supplement 06/06/18 Unknown History tablet) omega 3-dha 60 mg-epa 90 mg-fish 500 mg PO DAILY supplement 06/06/18 Unknown History oil 500 mg capsule, delayed release (Fish Oil) red yeast rice 600 mg capsule 600 mg PO DAILY hld 06/06/18 Unknown History tamsulosin 0.4 mg capsule 0.4 mg PO QHS #30 caps 05/05/24 Unknown Rx Allergy/AdvReac Type Severity Reaction Status Date / Time minocycline Allergy Rash Verified 05/05/24 12:14 Family History Mother Diabetes Dementia Father Diabetes CAD (coronary artery disease) Heart disease Hypertension Myocardial infarction Surgical History History of dental surgery History of vasectomy Social History household members: spouse Smoking Status: Never smoker alcohol intake: never substance use type: does not use Review of Systems (Anesthesia) ROS Narrative System reviewed and no additional complaints, except as documented.
--- NOTE | 2024-05-05 13:00 | COLBX_PTH ---
PATIENT: TISHA VOGEL III LOC: EN U#:[id number] AGE/SX: 58/M ROOM: RE05/05/[address]: Dr. Fan Nichols MD : 1965 BED: DIS: 05/05/2024 SPEC #: [id number] RECD: 05/06/24 07:24 STATUS: MOE MULLER #: [id number] KAZ: 05/05/24 13:[address]: Fan Nichols DEPT: SURGICAL PATHOLOGY RECD BY: Lashaun Mayer ENTERED: 05/06/24 09:51 SP TYPE: COLON BX PAULINE DR: Dr. Abena Cox MD Tissues: A - Sigmoid colon biopsy B - Sigmoid colon biopsy Procedures: Surgery Specimen Level IV HEADER OPERATION: Colonoscopy, polypectomy, biopsy PRE-OP DIAGNOSIS: Acute diverticulitis TISSUE SUBMITTED: A- Proximal sigmoid polyp x2, B- Mid sigmoid biopsy MICROSCOPIC DIAGNOSIS A. Proximal sigmoid colon polyp, biopsy: Ulceration with associated acute and chronic inflammation, granulation and reactive epithelial change. B. Mid sigmoid colon, biopsy: Polypoid fragment of colonic mucosa. See comment. / 05/07/2024 COMMENT B. Neither hyperplastic nor adenomatous change is identified. Clinical correlation is suggested. MICROSCOPIC DESCRIPTION Slides are reviewed. GROSS DESCRIPTION A. Received in fixative is one container labeled with the patient's name and designated Proximal sigmoid polyp. The specimen consists of multiple irregular fragments of light pappas soft tissue that in aggregate measure 1.0 x 0.5 x 0.1 cm. The specimen is totally submitted in one cassette. B. Received in fixative is one container labeled with the patient's name and designated Mid sigmoid colon biopsy. The specimen consists of one irregular fragment of light pappas soft tissue that measures 0.3 x 0.3 x 0.1 cm. The specimen is totally submitted in one cassette. / 05/06/2024 TC:2 CPT:81456n8
--- NOTE | 2024-05-05 13:29 | OP.COLON_ITS ---
Patient Name: Jose Spaulding Procedure Date: 05/05/2024 12:31 PM Date of : 1965 Age: 58 Procedure: Colonoscopy Indications: Diverticulitis Providers: Fan Nichols MD Medicines: See the Anesthesia note for documentation of the administered medications Patient Profile: Last Colonoscopy: more than 3 years ago. Complications: No immediate complications. Procedure: Pre-Anesthesia Assessment: - Prior to the procedure, a History and Physical was performed, and patient medications and allergies were reviewed. The patient's tolerance of previous anesthesia was also reviewed. The risks and benefits of the procedure and the sedation options and risks were discussed with the patient. All questions were answered, and informed consent was obtained. Prior Anticoagulants: The patient has taken no anticoagulant or antiplatelet agents. ASA Grade Assessment: II - A patient with mild systemic disease. After reviewing the risks and benefits, the patient was deemed in satisfactory condition to undergo the procedure. After I obtained informed consent, the scope was passed under direct vision. Throughout the procedure, the patient's blood pressure, pulse, and oxygen saturations were monitored continuously. The colonoscope was introduced through the anus and advanced to the cecum, identified by appendiceal orifice and ileocecal valve. The colonoscopy was performed without difficulty. The patient tolerated the procedure well. The quality of the bowel preparation was good. The ileocecal valve and the appendiceal orifice were photographed. Scope In: 1:04:19 PM Scope Withdrawal Time 0 hours 13 minutes 32 seconds Scope Out: 1:22:02 PM Total Procedure Duration Time 0 hours 17 minutes 43 seconds Findings: The digital rectal exam findings include non-thrombosed internal hemorrhoids, internal hemorrhoids that prolapse with straining, but require manual replacement into the anal canal (Grade III) and enlarged prostate. Multiple diverticula were found in the entire colon. A 6 mm polyp was found in the mid sigmoid colon. The polyp was sessile. The polyp was removed with a hot snare. Resection and retrieval were complete. A 3 mm polyp was found in the proximal sigmoid colon. The polyp was sessile. The polyp was removed with a cold biopsy forceps. Resection and retrieval were complete. Diffuse mild inflammation characterized by congestion (edema) was found in the mid sigmoid colon. Biopsies were taken with a cold forceps for histology. Impression: - Non-thrombosed internal hemorrhoids, internal hemorrhoids that prolapse with straining, but require manual replacement into the anal canal (Grade III) and enlarged prostate found on digital rectal exam. - Diverticulosis in the entire examined colon. - One 6 mm polyp in the mid sigmoid colon, removed with a hot snare. Resected and retrieved. - One 3 mm polyp in the proximal sigmoid colon, removed with a cold biopsy forceps. Resected and retrieved. Recommendation: - Await pathology results. - Repeat colonoscopy in 5 years for surveillance based on pathology results. - Telephone my office for pathology results in 1 week. - Continue present medications. Procedure Code(s): --- Professional --- 16300, Colonoscopy, flexible; with removal of tumor(s), polyp(s), or other lesion(s) by snare technique 59291, 59, Colonoscopy, flexible; with biopsy, single or multiple Diagnosis Code(s): --- Professional --- K64.2, Third degree hemorrhoids D12.5, Benign neoplasm of sigmoid colon K57.32, Diverticulitis of large intestine without perforation or abscess without bleeding N40.0, Benign prostatic hyperplasia without lower urinary tract symptoms K57.30, Diverticulosis of large intestine without perforation or abscess without bleeding CPT copyright 2021 [employer]. All rights reserved. The codes documented in this report are preliminary and upon hospital coder review may be revised to meet current compliance requirements. Fan Nichols MD 05/05/2024 1:29:12 PM This report has been signed electronically. Number of Addenda: 0 Note Initiated On: 05/05/2024 12:31 PM
--- NOTE | 2024-05-05 13:29 | OP.CCLET_ITS ---
05/05/2024 Abena Cox [address] [place] [address] Re : Colonoscopy procedure for [facility] Dear Dr. Cox This procedure was performed on Sunday, May 05, 2024. My impressions and recommendations are as follows: Impressions : - Non-thrombosed internal hemorrhoids, internal hemorrhoids that prolapse with straining, but require manual replacement into the anal canal (Grade III) and enlarged prostate found on digital rectal exam. - Diverticulosis in the entire examined colon. - One 6 mm polyp in the mid sigmoid colon, removed with a hot snare. Resected and retrieved. - One 3 mm polyp in the proximal sigmoid colon, removed with a cold biopsy forceps. Resected and retrieved. Recommendations : - Await pathology results. - Repeat colonoscopy in 5 years for surveillance based on pathology results. - Telephone my office for pathology results in 1 week. - Continue present medications. My findings are described in the full procedure note, which is enclosed. If I can be of further assistance, please feel free to contact me at Doctor phone number(s): Work: . Sincerely, Fan Nichols MD 05/05/2024 1:29:12 PM This report has been signed electronically.
--- NOTE | 2024-05-05 13:33 | PCM.POST.ANE ---
Anesthesia: Postop Eval I Current Vital Signs Temperature: 97.7 F Pulse Rate: 92 Blood Pressure: 114/69 Respiratory Rate: 16 Pulse Ox: 96 Oxygen Delivery Method: Room Air Assessment Airway patent: Yes Spontaneous unlabored respirations: Yes Mental status: Awake and Calm nausea: No Vomiting: No Anesthesia Complication: No Fluid Hydration Crystalloid volume administer (ml): 600 Total IV fluid infused: 600 Progress Note Anesthesia document: Postop Eval 1 completed: Yes
--- NOTE | 2024-05-05 15:08 | PCM.POSTANE2 ---
Anesthesia Postop Eval I Sum Postop Eval Completion status Anesthesia document: Postop Eval 1 completed: Yes Anesthesia Postop Eval I Summary Anesthesia Postop Eval I Summary: Anesthesia Postop Eval I: Assessment Summary Airway patent Yes 05/05/24 13:34 [email or web address] Spontaneous unlabored Yes 05/05/24 13:34 [email or web address] respirations Mental status Awake,Calm 05/05/24 13:34 [email or web address] nausea No 05/05/24 13:34 [email or web address] Vomiting No 05/05/24 13:34 [email or web address] Anesthesia Postop Eval I: Fluid Summary Crystalloid volume administer 600 05/05/24 13:34 [email or web address] (ml) Colloids volume administered ( ml) Blood Product volume administered (ml) Total IV fluid infused 600 05/05/24 13:34 [email or web address] Anesthesia Postop Eval I: Summary Notes Anesthesia Complication No 05/05/24 13:34 [email or web address] Anesthesia Complication Comment: Post-operative progress note Anesthesia: Postop Eval II Evaluation Mental status: Awake and Calm Pain Level: 0 nausea: No Vomiting: No Complications Anesthesia Complication: No
== END 2024-05-05 14:16 | disposition home or self-care (01) ==
LOC: EN 12:00 → AC 12:01
PROVIDERS: PCP Internal Medicine; Referring Provider Internal Medicine; Visit Provider Surgery
PROC: 0DJD8ZZ Inspection of Lower Intestinal Tract, Via Natural or Artificial Opening Endoscopic (ICD-10-PCS; CPT 45378; principal; 2024-05-05 12:55)
DX: K63.3 Ulcer of intestine (principal); E78.5 Hyperlipidemia, unspecified; K57.30 Diverticulosis of large intestine without perforation or abscess without bleeding; N40.0 Benign prostatic hyperplasia without lower urinary tract symptoms; K63.5 Polyp of colon; N18.2 Chronic kidney disease, stage 2 (mild); I12.9 Hypertensive chronic kidney disease with stage 1 through stage 4 chronic kidney disease, or unspecified chronic kidney disease; K64.2 Third degree hemorrhoids; K52.9 Noninfective gastroenteritis and colitis, unspecified; K21.9 Gastro-esophageal reflux disease without esophagitis
CPT/HCPCS: 45380; 45385; 88305; J7120; J2405

== ENCOUNTER 2024-05-22 16:30 | Outpatient (RCR) | payer OTHER, SELFPAY ==
--- NOTE | 2024-05-01 18:01 | HP.PTEVAL_ITS ---
Patient's Visit Information Visit Information Visit Information: TISHA VOGEL III is a 58 year old M referred to Physical Therapy by Dr. Abena Cox MD with a diagnosis of piriformis syndrome L. Date of Evaluation: 05/01/24 Physical Therapist: Gene Montgomery, DPT, OCS, CSCS Visit Plan Frequency: 2-3x /Week Duration: 4-6 Weeks Plan: 2-3x/week for 3-6 weeks(start 8 visits) start with rollout and stretching and MH to L quad, HS, ITB and piriformis area, progress quad and HS stretch to home(already doing ITB and piriformis) US L GT if painful at rest. nonthermal strength L hip to HEP, please work on LB ROM flexion and rotation and yoga stretches to HEP Subjective Subjective: L hip lateral and posterior pain, dull all the time and severe at times. Started 9-10 yrs ago with standing and foot would go numb. Worse since last summer lifting boulders. Only able to sleep 2 hrs and then goes to recliner, better in recliner. Piriformis stretch helps every morning sitting. Tries sleeping L side at night, Uses wedge cushion. Sharp pains are with weed eating adn moving wood, more pain 8/10 until sat andGun massage helps calmed down. Walking makes it worse. Sitting is better than walking. No h/o back problems. No imaging. Working as [employer] 100% . hunting is hobby. Any regular exercises Pain L hip: Pain Intensity (Out of 10): 2 Pain Intensity Range: 0 and 8 Comment: painful 85% of time. Objective Objective: Walks I with short steps but no antalgia I. Transfers chair and bed I. Steps reciprocal with no UE required and no antalgia. Upper leg muscle max tight throughout at HS -35 on 90/90 test, + B wilian test, ITB doesnt allow adduction in sidelying barely to neutral. Hip aROM is symmetrical and not painful. 45 er, 8 IR, 105 flexion, and 5 extension. - SHERLYN, - FADDIR L + tender L GT maximal and piriformis min. knee and ankle AROM WFL. ankle strength DF 4 L and 4+ R, others ankle 4+ without myotomal, knees are 4+/5 flexion and ext, hip ext and flexion 4/5, abduction 3+ B. reflexes 0/3 patella and achilles Sensation WNL to gross light touch in B LE. LB AROM ext max limited, flexion mod llimited, SB min limited, ext and L SB reproduce pain in L laterl hip transiently. Balance/Special Test Scores Lower Extremity Functional Score: 52 Goals Goal 1:: sleep in bed 6 hours without awaking to pain Goal Time Frame: 4-6 Weeks Goal 2:: Pain in L hip 75% better at 2/10 at worst Goal Time Frame: 4-6 Weeks Goal 3:: Walk 100 yards without limping or pain Goal Time Frame: 4-6 Weeks Goal 4:: LEFS score 55 Goal Time Frame: 4-6 Weeks Goal 5:: I appropriate HEP to limit future problems Rehabilitation Potential Physical Therapy Diagnosis: Pain and tenderness L hip limiting QOL Rehabilitation Potential: Fair Anticipated Interventions Patient/Client Instruction: Educate patient on: Condition and Plan of Care For the Purpose of:: To decrease pain, To increase ROM, To improve nutrient delivery to tissue, To improve muscle performance and motor function, To increase tolerance to activity/condition/position, To improve ability of physical actions for home/community/work/leisure and To improve gait and locomotor functions Therapeutic Exercise to Include: Strength training, Postural training, Flexibilty training, Gait and locomotor training, Passive ROM and Active ROM For the Purpose of:: To decrease pain, To increase ROM, To improve nutrient delivery to tissue, To improve muscle performance and motor function, To increase tolerance to activity/condition/position, To improve gait and locomotor functions and To improve health of tissue Manual Therapy Techniques to Include: Trigger point massage, Mobilization, Passive ROM and Soft tissue mobilization For the Purpose of:: To decrease pain, To increase ROM, To improve nutrient delivery to tissue, To increase tolerance to activity/condition/position and To improve ability of physical actions for home/community/work/leisure Ultrasound (thermal/non thermal): Yes For the Purpose of:: To decrease pain, To increase ROM and To improve nutrient delivery to tissue Text: Thank you for the opportunity to evaluate your patient. For Medicare and Medicare HMO plans, please review the plan of care and approve it. It will need to be FAXED BACK to us at [phone] for Medicare purposes. For Medicare only, by signing this I certify the plan of care. Please let me know if there are questions or concerns regarding this plan of care. Physician Signature: _Date:
--- NOTE | 2024-05-22 17:02 | HP.PTREVAL ---
Re-Evaluation Intro: Dr. Abena Cox MD, It has been my pleasure to treat TISHA VOGEL III over the last 7 visits for piriformis syndrome L. Please see the progress note below for an update on the physical therapy plan of care! Subjective Subjective: Will have appointment with Brooke soon due to lack of improvement. Pt is not feeling any better despite all of the soft tissue work he has had done adn the stretching and attempted strengthening. Objective Objective/Function: Pt still very tender and knotty in R priformis but is not responding to deep tissue, stretching and strengthening or radial pulse wave or US for the [facility]. Piriformis stretching helps at home but does not last. Did not tolerate hip strength as he got very sore. recommend return to doctor for nex tstep(x ray, MRI?) Plan Plan Plan: pt to see doctor due to lack of improvement. Recheck as needed in PT next visit or RPW if helpful Balance/Gait/Functional tests Balance/Special Test Scores Lower Extremity Functional Score: 52 Goals Goals Goal 1:: sleep in bed 6 hours without awaking to pain Goal Time Frame: 4-6 Weeks Goal 2:: Pain in L hip 75% better at 2/10 at worst Goal Time Frame: 4-6 Weeks Goal 3:: Walk 100 yards without limping or pain Goal Time Frame: 4-6 Weeks Goal 4:: LEFS score 55 Goal Time Frame: 4-6 Weeks Goal 5:: I appropriate HEP to limit future problems Anticipated Interventions Anticipated Interventions Patient/Client Instruction: Educate patient on: Condition and Plan of Care For the Purpose of:: To decrease pain, To increase ROM, To improve nutrient delivery to tissue, To improve muscle performance and motor function, To increase tolerance to activity/condition/position, To improve ability of physical actions for home/community/work/leisure and To improve gait and locomotor functions Therapeutic Exercise to Include: Strength training, Postural training, Flexibilty training, Gait and locomotor training, Passive ROM and Active ROM For the Purpose of:: To decrease pain, To increase ROM, To improve nutrient delivery to tissue, To improve muscle performance and motor function, To increase tolerance to activity/condition/position, To improve gait and locomotor functions and To improve health of tissue Manual Therapy Techniques to Include: Trigger point massage, Mobilization, Passive ROM and Soft tissue mobilization For the Purpose of:: To decrease pain, To increase ROM, To improve nutrient delivery to tissue, To increase tolerance to activity/condition/position and To improve ability of physical actions for home/community/work/leisure Ultrasound (thermal/non thermal): Yes For the Purpose of:: To decrease pain, To increase ROM and To improve nutrient delivery to tissue Re-Evaluation Ending Re-evaluation ending: Please do not hesitate to contact me at [phone] by phone or if you have questions or concerns regarding this new plan of care! Sincerely, Gene Montgomery, DPT, OCS, CSCS
--- NOTE | 2024-05-27 17:21 | HP.PTDCSUM_ITS ---
Discharge Summary D/C summary: It has been my pleasure to treat TISHA VOGEL III referred by Dr. Abena Cox MD, with the diagnosis of piriformis syndrome L for a total of 8 visit(s). Discharge Date: 05/27/24 Please see the following information for a summary of their discharge status. Subjective Subjective: Pain over the weeknd 7/10 much of weekend. Sunday was a bit better. Today is rough 05/24 today due to work. Sees doctor tomorrow. Sleep is not great past 2-3 hours, recliner s a little better. Activities pretty normal, working on tree stand. Not sure what the next step is. Pain L hip: Pain Intensity (Out of 10): 2 Overall Improvement % Improvement: 0 Objective Objective/Function: No antalgia in gait walking in but short distances are not typically a problem. B hip IR is 5 degree and very stiff but L IR reproduces lateral hip pain. Ext rotation is 45 adn no pain. + L hip scour today. 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 Suspicious of L hip OA today. Combined with subjective info then I would recommend f/u with doctor for next medical step (x ray hip) Goals Goal 1:: sleep in bed 6 hours without awaking to pain Goal Progress: Not Progressing Goal 2:: Pain in L hip 75% better at 2/10 at worst Goal Progress: Not Progressing Goal 3:: Walk 100 yards without limping or pain Goal Progress: Not Progressing Goal 4:: LEFS score 55 Goal Progress: Not Progressing Goal 5:: I appropriate HEP to limit future problems Goal Progress: stretching. Plan Plan: d/c and pt to doctor D/C Information Discharge Comments: Pt to doctor due to lack of improvement. d/c sentence: If there are questions or concerns regarding this patient's physical therapy, please feel free to call me at [phone]. Thank you for the referral of this patient. Sincerely, Gene Montgomery, DPT, OCS, CSCS Balance/Gait/Functional tests Balance/Special Test Scores Lower Extremity Functional Score: 45 Improvement % Improvement: 0
== END 2024-05-22 19:00 | disposition home or self-care (01) ==
LOC: PT 16:30
PROVIDERS: PCP Internal Medicine; Referring Provider Internal Medicine; Visit Provider Internal Medicine
DX: G57.02 Lesion of sciatic nerve, left lower limb (principal)
CPT/HCPCS: 97035; 97110; 97140; 97161

== ENCOUNTER → 2024-05-29 | Outpatient (CLI) | payer OTHER, SELFPAY ==
--- NOTE | 2024-05-29 08:20 | RAD_ITS ---
INDICATION: CHRONIC PAIN EXAMINATION/TECHNIQUE: X-RAY - XR Hip Unilateral with Pelvis when performed; 2-3 Views COMPARISON: Prior study dated: CT 04/11/2024 FINDINGS: PELVIC BONES: No displaced fracture, destructive or sclerotic lesions. Note that overlapping bowel shadows may however obscure fine detail. Sacroiliac joints are unremarkable. No widening of the pubic symphysis. HIPS: The hips are well aligned. Mild degenerative change bilaterally with subchondral sclerosis and osteophytes. No displaced fracture seen in this frontal view. SOFT TISSUES: No soft tissue swelling or gas. RAD/HIP, UNI W/ Pelvis 2-3 Views IMPRESSION: No evidence of displaced pelvic or hip fracture. Mild degenerative changes of the hips. Electronically Signed: Harrison Gipson MD at 7:00 EDT ,
== END | disposition home or self-care (01) ==
LOC: RAD 08:11
PROVIDERS: PCP Internal Medicine; Referring Provider Internal Medicine; Visit Provider Internal Medicine
DX: G57.02 Lesion of sciatic nerve, left lower limb (principal)
CPT/HCPCS: 73502

== ENCOUNTER → 2024-10-22 | Outpatient (CLI) | payer OTHER, SELFPAY ==
--- NOTE | 2024-10-22 15:50 | RAD_ITS ---
STUDY: X-RAY - LUMBAR SPINE REASON FOR EXAM: Male, 59 years old. pain -- please do upright AP, LAT, flex/ext TECHNIQUE: 3 view(s) of the lumbar spine were obtained. COMPARISON: CT abdomen and pelvis April 11, 2024 FINDINGS: Slight anterior wedging L1. This appears somewhat increased. Normal lumbar lordosis. There is no substantial scoliosis. Slight anterior subluxation L5-S1 and pars defects. Flexion demonstrates no change/instability. Limited range of motion. Ossification anterior longitudinal ligament. Normal vertebral bodies and endplates. Normal disc space heights. The soft tissue structures are unremarkable. RAD/L/S Spine Min 4 Views IMPRESSION: Mild compression fracture L1, age indeterminate. Grade 1 spondylolisthesis and spondylolysis L5-S1. No evidence of instability. Electronically Signed: Zane Torres MD at 17:23 EST ,
== END | disposition home or self-care (01) ==
LOC: RAD 15:37
PROVIDERS: PCP Internal Medicine; Referring Provider Student in an Organized Health Care Education/Training Program; Visit Provider Student in an Organized Health Care Education/Training Program
DX: M54.50 Low back pain, unspecified (principal)
CPT/HCPCS: 72110

== ENCOUNTER → 2024-11-16 | Outpatient (CLI) | payer OTHER, SELFPAY ==
--- NOTE | 2024-11-16 08:09 | MRI_ITS ---
PROCEDURE: SPINE LUMBAR (ROUTINE) REASON FOR EXAM: Low back pain. Left leg numbness. TECHNIQUE: Noncontrast lumbar spine MRI. COMPARISON: None. FINDINGS: Lumbar vertebral bodies maintain a normal height. There is grade 1 anterolisthesis of L5-S1 with chronic bilateral L5 pars defects. There is straightening of the normal lordotic curvature. There is mild levocurvature of the lumbar spine. There is diminished signal intensity involving the discs from L2-S1 related to degenerative disc disease. Multilevel disc space narrowing with endplate spurring is identified greatest at L3-L4. Multilevel Schmorl's nodes are identified. No acute fracture or subluxation is identified. The tip of the conus medullaris terminates at T12-L1 and signal intensity of the included spinal cord is within normal limits. Partial visualization of the abdomen demonstrates bilateral parapelvic renal cysts. Individual levels: L1-2: No disc herniation, central canal stenosis, or neural foraminal narrowing. Mild facet arthropathy is present. L2-3: No disc herniation, central canal stenosis, or neural foraminal narrowing. Mild facet/flavum hypertrophy is present. L3-4: Circumferential disc bulge and mild facet/flavum hypertrophy with no significant central canal stenosis. Mild bilateral neural foraminal narrowing is present. L4-5: Mild disc bulge and facet arthropathy with no significant central canal stenosis. There is moderate bilateral neural foraminal narrowing. L5-S1: Grade 1 anterolisthesis with disc bulge and facet arthropathy. No significant central canal stenosis. There is severe bilateral neural foraminal narrowing, right greater than left, with mass effect on the exiting bilateral L5 nerves. Sacrum: Visualized upper sacrum and SI joints are unremarkable. MRI/Spine Lumbar (Routine) IMPRESSION: 1. Chronic grade 1 anterolisthesis of L5-S1 with chronic bilateral L5 pars defe cts as well as disc bulge and facet arthropathy results in severe bilateral neural foraminal narrowing. 2. Multilevel degenerative disc disease and spondylosis with no significant flaquito tral canal stenosis. Multilevel varying degrees of neural foraminal narrowing are identified as above. Reading Location: [facility]
== END | disposition home or self-care (01) ==
LOC: MRI 08:09
PROVIDERS: PCP Internal Medicine; Referring Provider Student in an Organized Health Care Education/Training Program; Visit Provider Student in an Organized Health Care Education/Training Program
DX: M54.16 Radiculopathy, lumbar region (principal)
CPT/HCPCS: 72148

== ENCOUNTER → 2025-06-30 | Outpatient (CLI) | payer OTHER, SELFPAY ==
[2025-06-30 08:40] LABS: Hematocrit 48.2 % (40-54); Hemoglobin 15.7 g/dL (13.0-16.5); Immature Granulocytes Count 0.040 X10^3/uL (0.0-0.0); Mean Corp Hgb Conc 32.6 g/dL (32-36); Mean Corpuscular Volume 90.3 fL (80-94); Mean Platelet Vol. 9.5 fl (6.2-12.0); NRBC Flagged by Analyzer 0 % (0-5); Platelet Count 250 K/mm3 (150-450); RBC Distribution Width CV 11.7 % (11.6-14.6); RBC Distribution Width SD 38.5 fl (35.1-43.9); Red Blood Count 5.34 M/mm3 (4.6-6.2); White Blood Count 10.2 K/mm3 (4.4-11.0)
[2025-06-30 09:48] LABS: AST(SGOT) 23 U/L (<=37); Alanine Aminotransfer ALT/SGPT 18 U/L (<=46); Albumin, Serum 4.0 g/dL (3.4-4.8); Alkaline Phosphatase 80 U/L (40-129); Anion Gap 10 (5-15); BUN 21 mg/dL (4-19); BUN/Creat Ratio 19.4 RATIO (10-20); Calcium,Total 8.8 mg/dL (7.6-11.0); Carbon Dioxide 25.7 mmol/L (21.0-32.0); Chloride 106 mmol/L (98-108); Cholesterol 188 mg/dL (<=200); Globulin 2.7 g/dL (2.2-4.2); Glucose 104 mg/dL (70-99); Low Density Lipoprotein Calc. 119 mg/dL; Potassium 4.2 mmol/L (3.3-5.1); Triglycerides 79 mg/dL; Very Low Density Lipoprotein 16 mg/dL (5-40); Vitamin D,25 Hydroxy 53.6 ng/mL (30-100); cholesterol:hdl ratio screen 3.57
== END | disposition home or self-care (01) ==
LOC: LAB 08:09
PROVIDERS: PCP Internal Medicine; Referring Provider Internal Medicine; Visit Provider Internal Medicine
DX: R73.09 Other abnormal glucose (principal); I10 Essential (primary) hypertension; E78.5 Hyperlipidemia, unspecified; E55.9 Vitamin D deficiency, unspecified
CPT/HCPCS: 36415; 80053; 80061; 82306; 83036; 85025